=== PATIENT | female | born 1935 | race Caucasian/White ===

== ENCOUNTER 2017-02-22 09:11 | Emergency (ER) | payer OTHER ==
[2017-02-22 09:24] VITALS: BP 141/66; PULSE 79; TEMP 98.6; BMI 28.3
--- NOTE | 2017-02-22 10:24 | PDOC ---
History of Present Illness - General Chief Complaint: Cold Symptoms Stated Complaint: PAIN Time Seen by Provider: 02/22/17 09:45 History Source: Patient Exam Limitations: No Limitations - History of Present Illness Initial Comments: 02/22/17 16:21 Complaint: Dry cough, sore throat 3 weeks with nasal congestion and intermittent headache no headache now History of present illness: Patient is an 81-year-old female with a history of hypertension, hyperlipidemia, CVA, GERD, hypothyroidism here today complaining of a dry cough intermittent with no shortness of breath sore throat, nasal congestion, and intermittent headache. Patient denies any headache presently. Patient denies any shortness of breath. Patient is requesting refill of her pantoprazole 40 mg and her Synthroid 25 mcg. Denies any fever. Denies any chest pain. Timing/Duration: intermittent (for 3 weeks ) Severity: mild Associated Symptoms: reports: cough (dry cough intermittent for 3 weeks), headaches (none today), other (nasal congestion/sore throat) Past History - Past Medical History Allergies/Adverse Reactions: Allergies Allergy/AdvReac Type Severity Reaction Status Date / Time Fish Containing Products Allergy Verified 02/22/17 09:21 No Known Drug Allergies Allergy Verified 02/22/17 09:21 cat scan dye Allergy Uncoded 02/22/17 09:21 Home Medications: Ambulatory Orders Dextromethorphan Polistirex [Delsym] 60 mg PO Q12H PRN #8 naga.er.12h MDD 2 02/22 Levothyroxine [Synthroid -] 25 mcg PO DAILY #30 tablet MDD 1 02/22/17 Loratadine 10 mg PO DAILY #10 tab.rapdis 02/22/17 Pantoprazole Sodium 40 mg PO DAILY #30 tablet. MDD 40 02/22/17 Anemia: No Asthma: No Cancer: No Cardiac Disorders: No CVA: Yes COPD: No CHF: No Diabetes: No HTN: Yes Hypercholesterolemia: Yes Suicide Attempt (Hx): No Thyroid Disease: Yes (HYPO) - Surgical History Abdominal Surgery: Yes Cholecystectomy: Yes - Immunization History Immunization Up to Date: Yes - Psycho/Social/Smoking Cessation Hx Anxiety: No Suicidal Ideation: No Smoking Status: No Smoking History: Never smoked Have you smoked in the past 12 months: No Number of Cigarettes Smoked Daily: 0 Information on smoking cessation initiated: No Hx Alcohol Use: No Drug/Substance Use Hx: No Substance Use Type: None Hx Substance Use Treatment: No Review of Systems - Review of Systems Able to Perform ROS?: Yes Constitutional: No: Symptoms Reported HEENTM: Yes: Nose Congestion, Throat Pain Respiratory: Yes: Cough. No: Orthopnea, Shortness of Breath, SOB with Exertion , SOB at Rest, Stridor, Wheezing, Productive cough Cardiac (ROS): No: Symptoms Reported ABD/GI: No: Symptoms Reported Integumentary: Yes: Symptoms Reported Neurological: Yes: Headache (intermittent now now ). No: Numbness, Pre- Existing Deficit, Seizure, Tingling, Tremors, Weakness, Unsteady Gait, Ataxia, Dizziness *Physical Exam - Vital Signs Last Vital Signs Temp Pulse Resp BP Pulse Ox 98.6 F 79 18 141/66 100 02/22/17 09:21 02/22/17 09:21 02/22/17 09:21 02/22/17 09:21 02/22/17 09:21 - Physical Exam General Appearance: Yes: Appropriately Dressed HEENT: positive: EOMI, TATIANA, Normal ENT Inspection Neck: negative: Lymphadenopathy (R), Lymphadenopathy (L) Respiratory/Chest: positive: Lungs Clear, Normal Breath Sounds. negative: Chest Tender, Respiratory Distress Cardiovascular: positive: Regular Rhythm, Regular Rate, S1, S2 Neurologic: positive: Fully Oriented, Alert, Normal Response, Responsive. negative: Facial Droop, Confused, Disoriented Medical Decision Making - Medical Decision Making 02/22/17 16:24 Patient is an 81-year-old female with a history of hypertension, hyperlipidemia , CVA, GERD, hypothyroidism here today complaining of a dry cough intermittent with no shortness of breath sore throat, nasal congestion, and intermittent headache. Patient denies any headache presently. Patient denies any shortness of breath. Patient is requesting refill of her pantoprazole 40 mg and her Synthroid 25 mcg. Denies any fever. Denies any chest pain. cough nasal congestion PLAN: renewed pantoprazole 40 mg daily synthroid 25 mcg daily claritin 10 mg daily delsym 10 cc q 12 hr prn cough for 5 days follow up with ACTING MANAGER *DC/Admit/Observation/Transfer Diagnosis at time of Disposition: Upper respiratory infection Qualifiers: URI type: unspecified URI Qualified Code(s): J06.9 - Acute upper respiratory infection, unspecified - Discharge Dispostion Disposition: HOME Condition at time of disposition: Stable - Prescriptions Prescriptions: Dextromethorphan Polistirex [Delsym] 60 mg PO Q12H PRN #8 naga.er.12h MDD 2 PRN Reason: Cough Loratadine 10 mg PO DAILY #10 tab.rapdis Pantoprazole Sodium 40 mg PO DAILY #30 tablet. MDD 40 Levothyroxine [Synthroid -] 25 mcg PO DAILY #30 tablet MDD 1 - Patient Instructions Additional Instructions: Drink A lot a fluids and rest You must follow up with your primary care provider within the next few days return to emergeny room if symptoms worsen any difficulty breathing or new symptoms develop Take acetaminophen as needed as directed by homeopathic doctor for pain Patient Voiced understanding of discharge instructions and all questions were answered Beber mucho lquidos y descansar Debe hacer un seguimiento con zee proveedor de atencin primaria dentro de los pr ximos guillremo Regreso a la matt de emergencia si los sntomas empeoran cualquier dificultad para respirar o se desarrollan nuevos sntomas [place] acetaminofeno segn sea necesario segn las instrucciones del fabricante para el dolor Comprensin del paciente sobre las instrucciones de cj y todas las preguntas fueron contestadas
== END 2017-02-22 10:32 | disposition home or self-care (01) ==
LOC: JERFT 09:11
DX: J06.9 Acute upper respiratory infection, unspecified (principal)
CPT/HCPCS: 99281-25

== ENCOUNTER 2017-04-16 09:46 | Emergency (ER) | payer OTHER ==
[2017-04-16 09:51] VITALS: BP 130/67; PULSE 71; TEMP 97.9; BMI 23.8
--- NOTE | 2017-04-16 10:39 | PDOC ---
History of Present Illness - General Chief Complaint: Sore Throat Stated Complaint: THROAT AND EAR PAIN Time Seen by Provider: 04/16/17 10:20 History Source: Patient Exam Limitations: No Limitations - History of Present Illness Initial Comments: 04/16/17 10:33 Patient is a 81-year-old female history of arthritis presents to the emergency department with right ear pain and throat pain. She reports "I have an infection ". Allergies: No known allergies Medications: See medication list Family History: Non-contributory Social History: Denies smoking, alcohol use, or IVDU Review of Systems GENERAL/CONSTITUTIONAL: No fever or chills. No weakness. No weight change. HEAD, EYES, EARS, NOSE AND THROAT: No change in vision. Left ear and throat pain , no dysphagia. CARDIOVASCULAR: No chest pain or shortness of breath. RESPIRATORY: No cough, wheezing, or hemoptysis. GASTROINTESTINAL: No nausea, vomiting, diarrhea or constipation. No rectal bleeding. GENITOURINARY: No dysuria, frequency, or change in urination. MUSCULOSKELETAL: No joint or muscle swelling or pain. No neck or back pain. SKIN : No rash or easy bruising. NEUROLOGIC: No headache, vertigo, loss of consciousness, or loss of sensation. HEMATOLOGIC/LYMPHATIC: No anemia, easy bleeding, or history of blood clots. No lymphadenopathy Physical Exam: GENERAL: The patient is awake, alert, and fully oriented, in no acute distress. EYES: Pupils equal, round and reactive to light, extraocular movements intact, sclera anicteric, conjunctiva clear. ENT: Left TM is erythematous and bulging, nares patent, oropharynx clear without exudates. Moist mucous membranes. No uvula deviation NECK: Normal range of motion, supple without lymphadenopathy, JVD, or masses. LUNGS: Breath sounds equal, clear to auscultation bilaterally. No wheezes, and no crackles. HEART: Regular rate and rhythm, normal S1 and S2 without murmur, rub or gallop. ABDOMEN: Soft, nontender, normoactive bowel sounds. No guarding, no rebound. No masses. No bruising or abrasions MUSCULOSKELETAL: [Normal range of motion, no edema. No clubbing or cyanosis. No cords, erythema, or tenderness. No CVA Tenderness. NEUROLOGICAL: Cranial nerves II through XII grossly intact. Normal speech, normal gait. SKIN: Warm, Dry, normal turgor, no rashes or lesions noted. Past History - Past Medical History Allergies/Adverse Reactions: Allergies Allergy/AdvReac Type Severity Reaction Status Date / Time Fish Containing Products Allergy Verified 04/16/17 09:52 No Known Drug Allergies Allergy Verified 04/16/17 09:52 cat scan dye Allergy Uncoded 04/16/17 09:52 Home Medications: Ambulatory Orders Levothyroxine [Synthroid -] 25 mcg PO DAILY #30 tablet MDD 1 02/22/17 Loratadine 10 mg PO DAILY #10 tab.rapdis 02/22/17 Pantoprazole Sodium 40 mg PO DAILY #30 tablet. MDD 40 02/22/17 Amoxicillin - [Amoxicillin 875mg Tablet -] 875 mg PO BID #20 tablet 04/16/17 Anemia: No Asthma: No Cancer: No Cardiac Disorders: No CVA: Yes COPD: No CHF: No Diabetes: No HTN: Yes Hypercholesterolemia: Yes Suicide Attempt (Hx): No Thyroid Disease: Yes (HYPO) - Surgical History Abdominal Surgery: Yes Cholecystectomy: Yes - Immunization History Immunization Up to Date: Yes - Psycho/Social/Smoking Cessation Hx Anxiety: No Suicidal Ideation: No Smoking Status: No Smoking History: Never smoked Have you smoked in the past 12 months: No Number of Cigarettes Smoked Daily: 0 Hx Alcohol Use: No Drug/Substance Use Hx: No Substance Use Type: None Hx Substance Use Treatment: No *Physical Exam - Vital Signs Last Vital Signs Temp Pulse Resp BP Pulse Ox 97.9 F 71 18 130/67 97 04/16/17 09:48 04/16/17 09:48 04/16/17 09:48 04/16/17 09:48 04/16/17 09:48 Medical Decision Making - Medical Decision Making 04/16/17 12:57 A/P: Patient with acute otitis media with the see patient home on Motrin as needed for pain or Tylenol, amoxicillin strict follow-up with PMD. I discussed the physical exam findings, ancillary test results and final diagnoses with the patient. I answered all of the patient's questions. The patient was satisfied with the care received and felt comfortable with the discharge plan and treatment plan. The patient will call to arrange follow-up and will return to the Emergency Department with any new, persistent or worsening symptoms. , *DC/Admit/Observation/Transfer Diagnosis at time of Disposition: Otitis media Qualifiers: Otitis media type: unspecified Laterality: right Chronicity: acute - Discharge Dispostion Disposition: HOME Condition at time of disposition: Good Admit: No - Prescriptions Prescriptions: Amoxicillin - [Amoxicillin 875mg Tablet -] 875 mg PO BID #20 tablet - Referrals Referrals: Max Mariano MD [Primary Care Provider] - - Patient Instructions Printed Discharge Instructions: Middle Ear Infection Additional Instructions: Tylenol for pain, follow-up with PMD in 2 days if symptoms persist any increased pain, hearing loss, numbness or tingling, dizziness, nausea vomiting, or any other concerns return to ER
== END 2017-04-16 10:44 | disposition home or self-care (01) ==
LOC: JERFT 09:46
DX: H66.91 Otitis media, unspecified, right ear (principal); Z86.73 Personal history of transient ischemic attack (TIA), and cerebral infarction without residual deficits; I10 Essential (primary) hypertension; E78.00 Pure hypercholesterolemia, unspecified
CPT/HCPCS: 99281-25

== ENCOUNTER 2017-08-16 07:38 | Emergency (ER) | payer OTHER ==
[2017-08-16 07:46] VITALS: TEMP 98.3; BMI 28.1
--- NOTE | 2017-08-16 07:50 | PDOC ---
History of Present Illness - General Chief Complaint: Pain, Acute Stated Complaint: PAIN Time Seen by Provider: 08/16/17 07:49 - History of Present Illness Initial Comments: Patient is an 81-year-old female with a history of hypertension, hyperlipidemia , CVA, GERD, hypothyroidism here today complaining of headache, joint pains, throat discomfort, and pain in her legs from varicose veins. She actually stated to me that she had no medical problems but used to be on some medications that she doesn't remember the name of. She describes the headache as a posterior occipital tightness that is 5/10 in severity without co- presenting visual symptoms or focal neurological deficits. Her throat discomfort is an irritation and dryness that is better with water. Of note, she has had note of severe anxiety over the past few years since the of her (approximately 2 years prior). Denies fevers, chills, nausea., vomiting, . chest pain. cough, or diarrhea. Her PCP is Dr. Max Mariano and hasn't seem him for a while 08/16/17 08:36 Past History - Past Medical History Allergies/Adverse Reactions: Allergies Allergy/AdvReac Type Severity Reaction Status Date / Time Fish Containing Products Allergy Verified 08/16/17 07:41 No Known Drug Allergies Allergy Verified 08/16/17 07:41 cat scan dye Allergy Uncoded 08/16/17 07:41 Home Medications: Ambulatory Orders Unobtainable [Unobtainable] 08/16/17 Anemia: No Asthma: No Cancer: No Cardiac Disorders: No CVA: Yes COPD: No CHF: No Diabetes: No HTN: Yes Hypercholesterolemia: Yes Thyroid Disease: Yes (HYPO) - Surgical History Abdominal Surgery: Yes Cholecystectomy: Yes - Immunization History Immunization Up to Date: Yes - Suicide/Smoking/Psychosocial Hx Smoking Status: No Smoking History: Never smoked Have you smoked in the past 12 months: No Number of Cigarettes Smoked Daily: 0 Hx Alcohol Use: No Drug/Substance Use Hx: No Substance Use Type: None Hx Substance Use Treatment: No Review of Systems - Review of Systems Constitutional: No: Chills, Fever, Weakness HEENTM: No: Blurred Vision, Recent change in vision, Double Vision Respiratory: No: Cough, Shortness of Breath Cardiac (ROS): No: Chest Pain, Edema, Lightheadedness Musculoskeletal: Yes: Joint Pain, Muscle Pain Neurological: Yes: Headache. No: Numbness, Paresthesia *Physical Exam - Vital Signs Last Vital Signs Temp Pulse Resp BP Pulse Ox 98.3 F 78 15 142/82 98 08/16/17 07:42 08/16/17 07:42 08/16/17 07:42 08/16/17 07:42 08/16/17 07:42 - Physical Exam General Appearance: Yes: Nourished, Appropriately Dressed. No: Apparent Distress HEENT: positive: EOMI, TATIANA, Normal ENT Inspection, Normal Voice Neck: positive: Trachea midline, Normal Thyroid, Supple. negative: Tender, Rigid Respiratory/Chest: positive: Lungs Clear, Normal Breath Sounds. negative: Chest Tender, Respiratory Distress, Accessory Muscle Use Cardiovascular: positive: Regular Rhythm, Regular Rate, S1, S2. negative: Edema , JVD, Murmur Gastrointestinal/Abdominal: positive: Normal Bowel Sounds, Flat, Soft. negative : Tender Musculoskeletal: negative: Normal Inspection (Vericose veins above the knee without any significant edema or bony deformity. Slight pain with flexion and extensin of her knees bilaterally. ) Extremity: positive: Normal Range of Motion. negative: Normal Inspection ( Veracose veins bilaterally in LEs with some chronic, stable lymphadema.), Tender Neurologic: positive: plastic surgery manager II-XII NML intact, Alert, Normal Mood/Affect, Motor Strength 5/5. negative: Fully Oriented (Oriented to person, place, and month/ day buthad no clue what year it was "1999s I believe") Medical Decision Making - Medical Decision Making 82 F with recent lapse in PCP coverage due to some confusion presenting with headache and multiple body aches without chest pain or focal neurological deficit. This headache is admittedly similar to her previous headaches but has not remitted with aspirin use. We will get a head CT and give her 1G Tylenol PO and have set up an appointment with Dr. Max Mariano for at 15:00. Will DC patient home once CT returns (granted it is negative) and pain is controlled. 08/16/17 09:57 Patient feeling better after Tylenol and head CT only showing chronic microvascular changes but no acute changes. 08/16/17 10:31 *DC/Admit/Observation/Transfer Diagnosis at time of Disposition: Headache - Discharge Dispostion Disposition: HOME Condition at time of disposition: Improved Admit: No - Referrals Referrals: Max Mariano MD [Staff Physician] - - Patient Instructions Printed Discharge Instructions: DI for Osteoarthritis Additional Instructions: Te aguilar visto por artritis y dolor de hector. La tomografa computarizada de zee hector no mostr sangrado o felix nuevo. Debe seguir con el Dr. Max Mariano el jueves a las 3:00 PM para naga khanh.
--- NOTE | 2017-08-16 07:59 | PDOC ---
Attending Attestation - Medical Decision Making 08/16/17 09:39 The patient's primary is Dr. Max Mariano. Called his office at to make a follow- up appointment for this patient. She is now scheduled for an appointment with Dr. Mariano on August 19 at 3:00pm. The office is located at [address] [place] [address]. <Kierra Hendrix - Last Filed: 08/16/17 10:39> - Resident Resident Name: Alison Do - HPI HPI: 08/19/17 21:41 Pt presents to the ED with multiple nonspecific complaints, the most prominent complaint is mild, gradual onset, persistent headache. THis complaint seems to have been present and unchanged for several months. - Physicial Exam PE: 08/19/17 21:42 Agree with resident exam. Patient is neurologically intact and well appearing in the ED. - Medical Decision Making 08/19/17 21:42 Pt presents to the ED complaining of mild intermittent headache and multiple non specific complaints. CT head checked to rule out intracranial pathology and is negative. Will discharge home. <Leonarda Garcia - Last Filed: 08/19/17 21:45> Follow-Up - Follow-Up Follow-Up: As Needed (Please follow up with Dr. Max Mariano in his office on August 19 at 3:00pm.) <Kierra Hendrix - Last Filed: 08/16/17 10:39>
[2017-08-16] MEDS ORDERED: ACETAMINOPHEN 500 MG TABLET (FP) PO ONE (09:10)
[2017-08-16] MEDS ORDERED: ACETAMINOPHEN 325 MG TABLET (FP) ONE (09:16)
[2017-08-16 11:00] VITALS: BP 139/74; PULSE 53
== END 2017-08-16 11:00 | disposition home or self-care (01) ==
LOC: JER 07:38
DX: R51 Headache (principal); M25.50 Pain in unspecified joint; M79.605 Pain in left leg; M79.604 Pain in right leg; I10 Essential (primary) hypertension; E78.00 Pure hypercholesterolemia, unspecified; K21.9 Gastro-esophageal reflux disease without esophagitis; Z86.73 Personal history of transient ischemic attack (TIA), and cerebral infarction without residual deficits
CPT/HCPCS: 70450-TC; 99283-25

== ENCOUNTER 2019-10-31 14:34 | Inpatient (IN) | payer OTHER ==
[2019-10-31] MEDS ORDERED: ALBUTEROL SO4 2.5/IPRATROPIUM 0.5 INH SOL 3 ML VIAL.NEB. NEB ONE (15:15)
--- NOTE | 2019-10-31 15:31 | PDOC ---
History of Present Illness <Rafia Flores - Last Filed: 10/31/19 17:56> - General History Source: Patient, Service Trainer Used ([employer] Telephone Service Trainer) Exam Limitations: Language Barrier - History of Present Illness Initial Comments: HPI: 84 y/o female presenting to [facility] ER with unclear complaints. The pt is Pry[place] speaking only, but even utilizing the telephone translation service, the pts symptoms are difficult to elicit. The pts responses are tangential and contradictory. She initially complained of pain in the pit of [her] stomach with burning sensation in her throat. Then she reported sometimes feeling short of breath with chest pain, but these symptoms were not present at the time of interview. Denies nausea, vomiting, or diarrhea. Tolerating PO well. Last BM was yesterday and reportedly normal. PCP: Dr. Max Mariano GI: Dr. Lou Medical Hx: - HTN - HLD - CVA - GERD - Hypothyroidism - Extensive colonic diverticulosis - S/p cholecystectomy Review of Systems: In addition to that documented in the HPI above, the additional ROS was obtained : Constitutional- Denies fevers or chills Head- Denies vision changes ENMT- Denies sore throat CV- Denies chest pain Resp- Denies SOB GI- Denies vomiting or diarrhea - Endorses increased urinary frequency but believes this is because she is drinking "a lot" of water. Denies painful urination or hematuria. MSK- Denies recent trauma Skin- Denies new rashes Neuro- Denies new numbness or tingling or weakness Endocrine- Denies polyuria Heme- Denies bleeding or bruising Physical Examination: Vital signs and nursing notes reviewed. Constitutional- Adult female in no acute distress or obvious discomfort. Obese body habitus. Found sitting upright on edge of hospital bed. Head- Normocephalic. No obvious external signs of trauma. Cardiovascular / Chest- Regular rate and regular rhythm. No murmur, rubs, clicks , or gallops. Peripheral pulses- radial pulses full. 3+ pitting pretibial edema to bilateral lower extremities to the knee. Respiratory- Breathing shallow and mildly tachypneic. Pt became more tachypneic and started to cough when she was placed in the semi-aquino position. Equal chest rise and fall. Trace diffuse end-expiratory wheeze. Decreased breath sounds in the bases. No rhonchi or focal consolidation. Gastrointestinal- abdomen is soft, non-tender, non-distended. Neuro- Alert and oriented x4. Moving all four extremities spontaneously. Skin- Warm, dry, and intact. - No R or L CVA tenderness. Psych- Affect- appropriate. Mood- normal. Speech was non-labored, non- pressured. MDM: 84 y/o female presenting with unclear complaints. Afebrile. Vitals remarkable for hypoxia to 88 on room air, which improved with 1L oxygen therapy via nasal cannula. No hypotension, bradycardia, or tachycardia. Physical exam as described above. CXR revealed mediastinal congestion and questionable infiltrates in lower lobes. POCUS revealed trace B lines in R and L lower lobes. Possible effusion in R lower lobe. Decreased LV contractility. Anterior mitral leaflet does not strike septum. p-BNP elevated. Suspect likely new onset CHF. Ordered Lasix IV. Also replenished magnesium. EKG revealed sinus tachycardia. Unclear origin of the tachycardia as pt was not tachycardia on continuous telemetry monitoring. Possible exertional tachycardia from changing position for the formal 12-lead. Initial troponin not elevated. Will trend at 3 hrs given unclear onset of symptoms. Will admit the pt to telemetry for new onset CHF. 31 Oct 2019 19:24 PM Telephone discussion with Dr. Souza. Verbally appraised of the pts HPI, ED course, and current plan of management. Will admit the pt to telemetry. No additional orders requested. Repeat Troponin and EKG pending. Cecil Cross M.D., PGY2 Emergency Medicine Resident <Cecil Cross - Last Filed: 10/31/19 19:25> - General Chief Complaint: Pain Stated Complaint: ABD PAIN Time Seen by Provider: 10/31/19 14:47 Past History <Rafia Flores - Last Filed: 10/31/19 17:56> - Past Medical History Anemia: No Asthma: No Cancer: No Cardiac Disorders: No CVA: Yes COPD: No CHF: No Diabetes: No HTN: Yes Hypercholesterolemia: Yes Thyroid Disease: Yes (HYPO) - Surgical History Abdominal Surgery: Yes Cholecystectomy: Yes - Immunization History Immunization Up to Date: Yes - Psycho Social/Smoking Cessation Hx Smoking Status: No Smoking History: Never smoked Have you smoked in the past 12 months: No Number of Cigarettes Smoked Daily: 0 Hx Alcohol Use: No Drug/Substance Use Hx: No Substance Use Type: None Hx Substance Use Treatment: No <Cecil Cross - Last Filed: 10/31/19 19:25> - Past Medical History Allergies/Adverse Reactions: Allergies Allergy/AdvReac Type Severity Reaction Status Date / Time Fish Containing Products Allergy Verified 10/31/19 14:39 No Known Drug Allergies Allergy Verified 10/31/19 14:39 cat scan dye Allergy Uncoded 10/31/19 14:39 Home Medications: Ambulatory Orders Unobtainable 08/16/17 *Physical Exam - Vital Signs Last Vital Signs Temp Pulse Resp BP Pulse Ox 98 F 97 H 22 H 141/81 98 10/31/19 14:35 10/31/19 16:57 10/31/19 16:57 10/31/19 16:57 10/31/19 17:44 <Rafia Flores - Last Filed: 10/31/19 17:56> - Vital Signs Last Vital Signs Temp Pulse Resp BP Pulse Ox 98 F 90 18 140/74 100 10/31/19 14:35 10/31/19 14:35 10/31/19 14:35 10/31/19 14:35 10/31/19 14:35 <Cecil Cross - Last Filed: 10/31/19 19:25> Vital Signs - Vital Signs #1 Time: 15:30 Blood Pressure: 141/81 BP Location: Left Arm Blood Pressure Position: Sitting Pulse Rate: 97 Respiratory Rate: 22 O2 Sat by Pulse Oximetry (%): 98 Oxygen Delivery Method: Nasal Cannula Oxygen Flow Rate: 2 #2 Time: 16:56 Blood Pressure: 149/74 BP Location: Left Leg Blood Pressure Position: Sitting Pulse Rate: 97 Respiratory Rate: 28 O2 Sat by Pulse Oximetry (%): 96 Oxygen Delivery Method: Nasal Cannula Oxygen Flow Rate: 1 <Cecil Cross - Last Filed: 10/31/19 19:25> ED Treatment Course - LABORATORY CBC & Chemistry Diagram: 10/31/19 16:00 10/31/19 16:00 - ADDITIONAL ORDERS Additional order review: Laboratory Results 10/31/19 10/31/19 10/31/19 17:12 16:00 16:00 PT with INR INR PTT (Actin FS) VBG pH 7.36 POC VBG pCO2 51.6 POC VBG pO2 79.2 H VBG HCO3 28.2 VBG O2 Sat (Khalif) 95.0 H VBG Base Excess 2.4 H Sodium Potassium Chloride Carbon Dioxide Anion Gap BUN Creatinine Est GFR (CKD-EPI)AfAm Est GFR (CKD-EPI)NonAf Random Glucose Calcium Phosphorus 3.8 Magnesium 1.6 L Total Bilirubin AST ALT Alkaline Phosphatase Troponin I B-Natriuretic Peptide Total Protein Albumin TSH Thyroxine (T4) Urine Color Dk yellow Urine Appearance Cloudy Urine pH 5.5 Ur Specific [place] 1.032 Urine Protein 2+ H Urine Glucose (UA) Negative Urine Ketones Trace H Urine Blood 2+ H Urine Nitrite Negative Urine Bilirubin 2+ H Urine Urobilinogen 1.0 Ur Leukocyte Esterase Negative Urine WBC (Auto) 9 Urine RBC (Auto) 6 Urine Casts (Auto) 90 U Epithel Cells (Auto) 7.7 Urine Bacteria (Auto) 17.7 10/31/19 10/31/19 16:00 16:00 PT with INR 14.10 H INR 1.19 H PTT (Actin FS) 26.2 VBG pH POC VBG pCO2 POC VBG pO2 VBG HCO3 VBG O2 Sat (Khalif) VBG Base Excess Sodium 141 Potassium 3.6 Chloride 104 Carbon Dioxide 34 H Anion Gap 3 L BUN 9.4 Creatinine 0.8 Est GFR (CKD-EPI)AfAm 78.47 Est GFR (CKD-EPI)NonAf 67.70 Random Glucose 128 H Calcium 9.0 Phosphorus Magnesium Total Bilirubin 0.8 AST 31 ALT 28 Alkaline Phosphatase 75 Troponin I 0.03 B-Natriuretic Peptide 5286.2 H Total Protein 6.4 Albumin 3.3 L TSH 4.79 H Thyroxine (T4) 7.9 Urine Color Urine Appearance Urine pH Ur Specific [place] Urine Protein Urine Glucose (UA) Urine Ketones Urine Blood Urine Nitrite Urine Bilirubin Urine Urobilinogen Ur Leukocyte Esterase Urine WBC (Auto) Urine RBC (Auto) Urine Casts (Auto) U Epithel Cells (Auto) Urine Bacteria (Auto) 10/31/19 16:00 RBC 3.94 MCV 94.6 MCHC 32.8 RDW 14.1 MPV 12.0 H D Neutrophils % 78.0 D Lymphocytes % 7.0 L D Monocytes % 12.6 H Eosinophils % 1.7 Basophils % 0.7 - Medications Given in the ED: ED Medications Discontinued Medications Generic Name Dose Route Start Last Admin Trade Name Freq PRN Reason Stop Dose Admin Albuterol/Ipratropium 1 amp 10/31/19 15:15 10/31/19 15:55 Duoneb - NEB 10/31/19 15:16 Not Given ONCE ONE <Rafia Flores - Last Filed: 10/31/19 17:56> - LABORATORY CBC & Chemistry Diagram: 10/31/19 16:00 10/31/19 16:00 - RADIOLOGY Radiology Studies Ordered: Category Date Time Status CXRPORT [CHEST X-RAY PORTABLE*] [RAD] Stat Radiology 10/31/19 15:12 Ordered <Cecil Cross - Last Filed: 10/31/19 19:25> Discharge - Discharge Information Problems reviewed: Yes - Admission Yes <Rafia Flores - Last Filed: 10/31/19 17:56> - Discharge Information Problems reviewed: Yes - Admission Yes <Cecil Cross - Last Filed: 10/31/19 19:25> - Discharge Information Clinical Impression/Diagnosis: CHF exacerbation, Pleural effusion, Elevated brain natriuretic peptide (BNP) level Condition: Guarded
--- NOTE | 2019-10-31 16:36 | PDOC ---
Attending Attestation - Resident Resident Name: Cecil Cross - ED Attending Attestation I have performed the following: I have examined & evaluated the patient, The case was reviewed & discussed with the resident, I agree w/resident's findings & plan - HPI HPI: 10/31/19 16:31\ 84 YOF with h/o HTN, HLD, CVA, GERD, hypothyroidism, diverticolosis, s/p cholecystectomy presenting with SOB, unable to lie flat, chest pain and abdominal pain/bloating. The pt is Occitan speaking only, used language interpreter line with telephone translation with multiple complaints. 10/31/19 19:33 - Physicial Exam PE: 10/31/19 16:32 mild respiratory distress, orthopneic, sitting upright, EOMI, PERRL, nl conjunctiva, anicteric; neck supple. mildly tachypneic, on supp O2, lungs with b /l lower base crackles, left > right, diminished on right lower lung field. RRR , abdomen soft obese. no rebound, guarding. Back nontender. NG x4, no focal neuro deficits. b/l 2+ pitting peripheral edema. normal color for ethnicity, WWP. no calf tenderness. - Medical Decision Making 10/31/19 16:34 Vital Signs Temp Pulse Resp BP Pulse Ox 98 F 97 H 22 H 141/81 98 10/31/19 14:35 10/31/19 15:47 10/31/19 15:47 10/31/19 15:47 10/31/19 15:47 DDx SOB: ACS, arrhythmia, PE, PTX, CHF, COPD exac, pulmonary edema, pleurisy, pneumonia, viral syndrome. effusion. anemia, electrolyte/metabolic derangements. viral syndrome. EKG sinus tachycardia at 134 bpm, no interval abnormalities, narrow QRS, ST and T wave segments and morphology normal. Nonspecific T wave abnormalities, likely while lying down and getting orthopneic Vital signs noted, afebrile, normal heart rate, mildly tachypneic and SPO2 borderline at 90% on room air so placed on supplemental oxygen 1 to 2 L via nasal cannula has been appropriate. With appropriate response. Hemodynamically appropriate. Work-up for new onset congestive heart failure, bedside ultrasound with decreased ejection fraction less than 30% on visual estimation, right-sided pleural effusion, scant B-lines bilaterally, correlating with chest x-ray findings of bilateral pulmonary vascular congestion, blunting on right side horacio with pleural effusion. Will diurese Lasix 40 mg IV, Influenza negative, BNP is elevated greater than 5000, troponin is negative so unlikely to be ACS. Magnesium is low at 1.6, repleted 2 g IV. Remainder of electrolytes and creatinine are fine. VBG within normal limits without significant CO2 retention, no evidence of acidosis or alkalosis. CBC and coags are also normal. admit to telemetry for new onset CHF, fluid overload/pleural effusion, inpatient cardiology evaluation and further medical management admitting to Dr Souza service. 10/31/19 17:53 10/31/19 17:55 10/31/19 19:34 Heart Score/ECG Review #1 ECG reviewed & interpreted by me at: 16:45 General ECG Interpretation: Normal Intervals 10/31/19 17:35 EKG sinus tachycardia at 134 bpm, no interval abnormalities, narrow QRS, ST and T wave segments and morphology normal. Nonspecific T wave abnormalities, likely while lying down and getting orthopneic - does not appear as SVT, as there are P waves present
[2019-10-31 16:47] LABS: VENOUS PC02 51.6 mmHg (38-52); VENOUS PH 7.36 (7.31-7.41); VENOUS PO2 79.2 mmHg (28-48)
[2019-10-31 16:50] LABS: BASO % 0.7 % (0-2.0); EOS % 1.7 % (0-4.5); HEMATOCRIT 37.3 % (32.4-45.2); HEMOGLOBIN 12.2 GM/dL (10.7-15.3); MCHC 32.8 g/dl (32.0-36.0); MEAN CELL VOLUME 94.6 fl (80-96); MONO % 12.6 % (3.8-10.2); PLATELET COUNT 127 K/MM3 (134-434); RBC 3.94 M/mm3 (3.60-5.2); RDW 14.1 % (11.6-15.6); WHITE BLOOD COUNT 5.9 K/mm3 (4.0-10.0)
[2019-10-31 17:18] LABS: INR 1.19 (0.83-1.09); PROTHROMBIN TIME (PATIENT) 14.1 SEC (9.7-13.0)
[2019-10-31 17:21] LABS: ACTIVATED PTT 26.2 SECONDS (25.2-36.5)
[2019-10-31 17:23] LABS: MAGNESIUM 1.6 mg/dL (1.8-2.4); PHOSPHOROUS 3.8 mg/dL (2.5-4.9)
[2019-10-31 17:27] LABS: EPI CELLS 7.7 /HPF (0-5/HPF); HYALINE CASTS 90 /lpf (0-8); PH,URINE 5.5 (5.0-8.0); URINE APPEARANCE CLOUDY; URINE BACTERIA 17.7 /hpf (NEGATIVE); URINE BILIRUBIN 2+ (NEGATIVE); URINE COLOR DK YELLOW; URINE GLUCOSE (UA) NEGATIVE (NEGATIVE); URINE KETONE TRACE (NEGATIVE); URINE LEUK ESTERASE NEGATIVE (NEGATIVE); URINE NITRITE NEGATIVE (NEGATIVE); URINE PROTEIN 2+ (NEGATIVE); URINE RBC 6 /hpf (0-4); URINE WBC 9 /hpf (0-5)
[2019-10-31] MEDS ORDERED: MAGNESIUM SULF 50% (8.12 MEQ/2 ML-1 GM VIAL) IVPB ONE (17:34)
[2019-10-31 17:35] LABS: ALBUMIN 3.3 g/dl (3.4-5.0); BILIRUBIN,TOTAL 0.8 mg/dL (0.2-1); BLOOD UREA NITROGEN 9.4 mg/dL (7-18); CREATININE 0.8 mg/dL (0.55-1.3); N-TERMINAL BNP 5286.2 pg/ml (5-450); POTASSIUM 3.6 mmol/L (3.5-5.1); TOT PROT 6.4 g/dl (6.4-8.2)
[2019-10-31] MEDS ORDERED: FUROSEMIDE 40 MG/4 ML INJECTABLE VIAL IVPUSH ONE (17:56)
[2019-10-31] MEDS ORDERED: MAGNESIUM SULFATE IN WATER 2 GM/50 ML IVPB IVPB ONE (18:11)
[2019-10-31] MEDS ORDERED: FUROSEMIDE 40 MG/4 ML INJECTABLE VIAL ONE (18:11)
[2019-11-01 10:41] LABS: BASO % 0.6 % (0-2.0); EOS % 2.6 % (0-4.5); HEMATOCRIT 35.9 % (32.4-45.2); HEMOGLOBIN 11.8 GM/dL (10.7-15.3); LYMPH % 14.2 % (8-40); MCH 30.8 pg (25.7-33.7); MCHC 32.8 g/dl (32.0-36.0); MEAN CELL VOLUME 93.8 fl (80-96); MEAN PLT VOLUME 11.1 fl (7.5-11.1); MONO % 17.2 % (3.8-10.2); NEUT % 65.4 % (42.8-82.8); PLATELET COUNT 106 K/MM3 (134-434); RBC 3.83 M/mm3 (3.60-5.2); RDW 14.1 % (11.6-15.6); WHITE BLOOD COUNT 6.6 K/mm3 (4.0-10.0)
[2019-11-01 11:15] LABS: BILIRUBIN,TOTAL 0.8 mg/dL (0.2-1); CALCIUM 8.4 mg/dL (8.5-10.1); CREATININE 0.7 mg/dL (0.55-1.3); POTASSIUM 3.6 mmol/L (3.5-5.1)
--- NOTE | 2019-11-01 11:51 | HP ---
Admitting History and Physical - Admission History of Present Illness: Pt is a 84 y/o female with PMH significant for systolic CHF (moderate systolic LV dysfunction on 10/2019 ECHO), HTN, HLD, CVA, GERD, hypothyroidism, diverticolosis, obesity who now presents to the ER w/ SOB (unable to lie flat) x 72 hours. Pt also complains of a nonspecific abdominal pain. In the ER CXR showed congestive changes/atelectasis and BNP wzs > 5000. - Past Medical History BOOK JOGGER: Yes: CVA, Other (generalized weakness) Cardiovascular: Yes: Aneurysm, CAD, HTN, Hyperlipdemia Gastrointestinal: Yes: Constipation, Diverticulosis, Hemorrhoids Endocrine: Yes: Hypothyroidism - Past Surgical History Past Surgical History: Yes: Cholecystectomy - Smoking History Smoking history: Never smoked Have you smoked in the past 12 months: No Aproximately how many cigarettes per day: 0 - Alcohol/Substance Use Hx Alcohol Use: No - Social History ADL: Independent History of Recent Travel: No Home Medications - Allergies Allergies/Adverse Reactions: Allergies Allergy/AdvReac Type Severity Reaction Status Date / Time Fish Containing Products Allergy Verified 10/31/19 14:39 No Known Drug Allergies Allergy Verified 10/31/19 14:39 cat scan dye Allergy Uncoded 10/31/19 14:39 - Home Medications Home Medications: Ambulatory Orders Calcium Carbonate/Vitamin D3 [Calcium 500 + Vit D Caplet] 1 each PO DAILY Meloxicam 7.5 mg PO DAILY 11/01/19 Aspirin Coated [Ecotrin -] 81 mg PO DAILY #30 tablet.ec 11/13/19 Docusate Sodium [Colace -] 100 mg PO BID #60 capsule 11/13/19 Furosemide [Lasix -] 40 mg PO DAILY #30 tablet 11/13/19 Metoprolol Succinate [Toprol XL -] 50 mg PO DAILY #30 tab.sr.24h 11/13/19 Sacubitril/Valsartan [Entresto 24 mg-26 mg Tablet] 1 tab PO BID #60 tablet 11/13 Spironolactone [Aldactone -] 25 mg PO DAILY #30 tablet 11/13/19 Family Medical History Family History: Unremarkable Review of Systems - Review of Systems Constitutional: reports: No Symptoms Eyes: reports: No Symptoms HENT: reports: No Symptoms Neck: reports: No Symptoms Cardiovascular: reports: Shortness of Breath Respiratory: reports: SOB Gastrointestinal: reports: Abdominal Pain Genitourinary: reports: No Symptoms Physical Examination Vital Signs: Vital Signs Temperature 99.1 F 11/01/19 06:14 Pulse Rate 90 11/01/19 07:15 Respiratory Rate 18 11/01/19 07:15 Blood Pressure 124/64 11/01/19 07:15 O2 Sat by Pulse Oximetry (%) 93 L 11/01/19 07:15 Eyes: Yes: WNL HENT: Yes: WNL Neck: Yes: WNL, Supple Cardiovascular: Yes: WNL, Regular Rate and Rhythm Respiratory: Yes: Rales Gastrointestinal: Yes: WNL, Normal Bowel Sounds, Soft Edema: Yes Edema: LLE: 1+, RLE: 1+ Neurological: Yes: WNL, Alert, Oriented ...Motor Strength: WNL Labs: CBC, BMP 11/01/19 10:30 11/01/19 10:30 Problem List - Problems (1) Acute on chronic systolic (congestive) heart failure Assessment/Plan: Cont IV lasix Cardio consult Monitor electror electrolytes Check echo Code(s): I50.23 - ACUTE ON CHRONIC SYSTOLIC (CONGESTIVE) HEART FAILURE (2) Atelectasis Assessment/Plan: Cont O2 therapy Incentive spirometry Code(s): J98.11 - ATELECTASIS (3) CAD (coronary artery disease) Code(s): I25.10 - ATHSCL HEART DISEASE OF [place] CORONARY ARTERY W/O ANG PCTRS (4) HLD (hyperlipidemia) Code(s): E78.5 - HYPERLIPIDEMIA, UNSPECIFIED (5) HTN (hypertension) Assessment/Plan: Cont metoprolol/lisinopril Code(s): I10 - ESSENTIAL (PRIMARY) HYPERTENSION (6) Hypothyroid Code(s): E03.9 - HYPOTHYROIDISM, UNSPECIFIED
[2019-11-01] MEDS ORDERED: FUROSEMIDE 40 MG/4 ML INJECTABLE VIAL ONE (11:57)
[2019-11-01] MEDS: FUROSEMIDE 40 MG/4 ML INJECTABLE VIAL IVPUSH SCH (12:02)
--- NOTE | 2019-11-01 12:36 | EKG ---
Test Reason : Blood Pressure : / mmHG Vent. Rate : 134 BPM Atrial Rate : 131 BPM P-R Int : 000 ms QRS Dur : 114 ms QT Int : 326 ms P-R-T Axes : 000 -42 086 degrees QTc Int : 486 ms SUPRAVENTRICULAR TACHYCARDIA LEFT AXIS DEVIATION NONSPECIFIC ST AND T WAVE ABNORMALITY ABNORMAL ECG WHEN COMPARED WITH ECG OF 01-JUL-2016 17:41, [place] INTERVAL HAS DECREASED VENT. RATE HAS INCREASED BY [address] ELEVATION NOW PRESENT IN ANTERIOR LEADS T WAVE INVERSION NO LONGER EVIDENT IN INFERIOR LEADS T WAVE INVERSION NO LONGER EVIDENT IN ANTERIOR LEADS Confirmed by BOGDAN DOW MD ([id number]) on 11/01/2019 12:35:53 PM Referred By: Confirmed By:BOGDAN DOW MD
--- NOTE | 2019-11-01 12:36 | EKG ---
Test Reason : Blood Pressure : / mmHG Vent. Rate : 098 BPM Atrial Rate : 098 BPM P-R Int : 226 ms QRS Dur : 114 ms QT Int : 352 ms P-R-T Axes : 039 -39 110 degrees QTc Int : 449 ms SINUS RHYTHM WITH 1ST DEGREE A-V BLOCK LEFT AXIS DEVIATION MINIMAL VOLTAGE CRITERIA FOR LVH, MAY BE NORMAL VARIANT T WAVE ABNORMALITY, CONSIDER LATERAL ISCHEMIA ABNORMAL ECG WHEN COMPARED WITH ECG OF 31-OCT-2019 16:43, [place] INTERVAL HAS INCREASED ST NO LONGER ELEVATED IN ANTERIOR LEADS Confirmed by VICTOR M HOUSTON, BOGDAN ([id number]) on 11/01/2019 12:36:02 PM Referred By: Confirmed By:BOGDAN DOW MD
--- NOTE | 2019-11-01 13:44 | ECHO ---
Name: BERNARD GIBSON Exam:Adult Echocardiogram Study Date: 11/01/2019 01:08 PM Age: 84 yrs Reason For Study: CHF Height: 68 in Weight: 220 lb BSA: 2.1 m2 MMode/2D Measurements & Calculations IVSd: 1.1 cm Ao root diam: 3.4 cm LVIDd: 5.3 cm LA dimension: 3.1 cm LVIDs: 4.1 cm LVPWd: 1.0 cm EDV(Teich): 133.1 ml LVOT diam: 2.0 cm ESV(Teich): 75.8 ml LAV (MOD-bp): 125.0 ml Doppler Measurements & Calculations MV E max lowell: 107.0 cm/sec Ao V2 max: 177.1 cm/sec MV A max lowell: 66.9 cm/sec Ao max P.5 mmHg MV E/A: 1.6 AI P1/2t: 262.9 msec MV dec time: 0.14 sec DEISY(V,D): 1.7 cm2 AI max lowell: 406.0 cm/sec LV V1 max P.6 mmHg AI max P.1 mmHg LV V1 max: 95.1 cm/sec AI dec slope: 452.3 cm/sec2 MR max lowell: 405.6 cm/sec TR max lowell: 273.9 cm/sec MR max P.4 mmHg TR max P.2 mmHg PA V2 max: 118.1 cm/sec Med Peak E' [place]: 3.6 cm/sec PA max P.6 mmHg Med E/e': 29.8 Lat Peak E' [place]: 7.5 cm/sec Lat E/e': 14.3 PI Vmax: 92.3 cm/sec Procedure A two-dimensional transthoracic echocardiogram with color flow and Doppler was performed. The study w as technically difficult with many images being suboptimal in quality. Left Ventricle The left ventricle is grossly normal size. Left ventricular systolic function is moderately reduced. Left Ventricular Filling pattern is normal for age. Regional wall motion abnormalities cannot be excluded due to limited visualization. There is moderate global hypokinesis of the left ventricle. Right Ventricle The right ventricle is not well visualized. The right ventricle is grossly normal size. Atria Normal left and right atrial size and function. Mitral Valve There is mild mitral valve thickening. There is no mitral valve stenosis. There is mild to moderate m itral regurgitation. Tricuspid Valve There is mild tricuspid valve thickening. There is no tricuspid stenosis. There is mild to moderate t ricuspid regurgitation. Right ventricular systolic pressure is elevated at 40-50mmHg. Aortic Valve The aortic valve is not well visualized. No hemodynamically significant valvular aortic stenosis. Mil d to moderate aortic regurgitation. Pulmonic Valve The pulmonic valve is not well visualized. There is no pulmonic valvular stenosis. Trace pulmonic miya vular regurgitation. Great Vessels The aortic root is normal size. Pericardium/Pleura There is no pericardial effusion. Interpretation Summary The left ventricle is grossly normal size. There is mild to moderate tricuspid regurgitation. Right ventricular systolic pressure is elevated at 40-50mmHg. Mild to moderate aortic regurgitation. Left Ventricular Filling pattern is normal for age. There is mild to moderate mitral regurgitation. Left ventricular systolic function is moderately reduced. Regional wall motion abnormalities cannot be excluded due to limited visualization. There is moderate global hypokinesis of the left ventricle. The study was technically difficult with many images being suboptimal in quality. MD Edvin Raza 11/01/2019 01:43 PM
--- NOTE | 2019-11-01 13:58 | CON.CARD ---
Consult Consult Specialty:: cardiology Reason for Consultation:: shortness of breath - History of Present Illness Chief Complaint: Pt alert; denies chest pain; dyspneic on mild exertion; cough with phlegm History of Present Illness: 84 YOF with h/o systolic CHF (moderate systolic LV dysfunction on 10/2019 ECHO) , HTN, HLD, CVA, GERD, hypothyroidism, diverticolosis, obesity, s/p cholecystectomy, now admitted with SOB (unable to lie flat) x 72 hours; denies chest pain. - History Source History Provided By: Patient, Medical Record Limitations to Obtaining History: Poor Historian - Past Medical History [employer]: Yes: CVA, Other (generalized weakness) Cardio/Vascular: Yes: Aneurysm, CAD, HTN, Hyperlipdemia Gastrointestinal: Yes: Constipation, Diverticulosis, Hemorrhoids Renal/: No: Renal Failure Reproductive: Yes: Postmenopausal ...: No Heme/Onc: No: Anemia Endocrine: Yes: Hypothyroidism - Past Surgical History Past Surgical History: Yes: Cholecystectomy - Alcohol/Substance Use Hx Alcohol Use: No - Smoking History Smoking history: Never smoked Have you smoked in the past 12 months: No Aproximately how many cigarettes per day: 0 - Social History Usual Living Arrangement: With Child ADL: Independent History of Recent Travel: No Home Medications - Allergies Allergies/Adverse Reactions: Allergies Allergy/AdvReac Type Severity Reaction Status Date / Time Fish Containing Products Allergy Verified 10/31/19 14:39 No Known Drug Allergies Allergy Verified 10/31/19 14:39 cat scan dye Allergy Uncoded 10/31/19 14:39 - Home Medications Home Medications: Ambulatory Orders Calcium Carbonate/Vitamin D3 [Calcium 500 + Vit D Caplet] 1 each PO DAILY Meloxicam 7.5 mg PO DAILY 11/01/19 Metoprolol Succinate [Toprol Xl] 25 mg PO DAILY 11/01/19 Review of Systems - Review of Systems Constitutional: reports: Weakness Eyes: reports: No Symptoms HENT: reports: No Symptoms Neck: reports: No Symptoms Cardiovascular: reports: Shortness of Breath Respiratory: reports: SOB Gastrointestinal: reports: No Symptoms Genitourinary: reports: No Symptoms Breasts: reports: No Symptoms Reported Musculoskeletal: reports: Muscle Weakness Integumentary: reports: No Symptoms Neurological: reports: Weakness Endocrine: reports: No Symptoms Hematology/Lymphatic: reports: No Symptoms Psychiatric: reports: Anxiety - Risk Factors Known Risk Factors: Yes: Age, Hypercholesterolemia, Hypertension, Physical Inactivity Vital Signs: Vital Signs Temperature 99.1 F 11/01/19 06:14 Pulse Rate 91 H 11/01/19 12:03 Respiratory Rate 18 11/01/19 12:03 Blood Pressure 126/74 11/01/19 12:03 O2 Sat by Pulse Oximetry (%) 97 11/01/19 12:03 Constitutional: Yes: Anxious Eyes: Yes: WNL HENT: Yes: WNL Respiratory: Yes: Diminished, SOB, Tachypnea, Wheezes Renal/: No: Anuria Cardiovascular: Yes: Tachycardia JVD: Yes Carotid Bruit: No PMI: Displaced Heart Sounds: Yes: S1, S2, S4 Murmur: Yes: Systolic Murmur, Grade 2 Musculoskeletal: Yes: Muscle Weakness Extremities: Yes: Other Edema: Yes Edema: LLE: 2+, RLE: 2+ Peripheral Pulses WNL: Yes Integumentary: Yes: WNL Neurological: Yes: Alert, Oriented, Weakness Psychiatric: Yes: Alert, Oriented - Other Data Labs, Other Data: CBC, BMP 11/01/19 10:30 11/01/19 10:30 INR, PTT INR 1.19 (0.83-1.09) H 10/31/19 16:00 Troponin, BNP 10/31/19 10/31/19 11/01/19 16:00 20:34 10:30 Troponin I 0.03 0.04 0.05 B-Natriuretic Peptide 5286.2 H Troponin, BNP 10/31/19 10/31/19 11/01/19 16:00 20:34 10:30 Troponin I 0.03 0.04 0.05 B-Natriuretic Peptide 5286.2 H Abnormal Lab Results 11/01/19 11/01/19 11/02/19 10:30 10:30 05:50 Plt Count 106 L 108 L MPV 11.3 H Monocytes % 17.2 H 18.4 H Potassium Carbon Dioxide 35 H Anion Gap 4 L Random Glucose Calcium 8.4 L Total Protein 6.0 L Albumin 3.0 L 11/02/19 05:50 Plt Count MPV Monocytes % Potassium 3.1 L Carbon Dioxide 36 H Anion Gap 7 L Random Glucose 108 H Calcium Total Protein 6.0 L Albumin 3.0 L Echo: Report Reviewed Ejection Fraction %: LVEF > or = 40 % Imaging - Results Chest X-ray: Image Reviewed EKG: Image Reviewed Other: Image Reviewed (telemetry: NSR; periods of sinus tachycardia.) Problem List - Problems (1) Acute on chronic systolic (congestive) heart failure Assessment/Plan: On lisinopril, metoprolol, furosemide. F/u BUN/Cr, electrolytes, daily weight, Is and Os. Consider starting spironolactone. Code(s): I50.23 - ACUTE ON CHRONIC SYSTOLIC (CONGESTIVE) HEART FAILURE (2) Hypothyroid Assessment/Plan: f/u TFTs. Code(s): E03.9 - HYPOTHYROIDISM, UNSPECIFIED (3) Malaise and fatigue Code(s): R53.81 - OTHER MALAISE; R53.83 - OTHER FATIGUE (4) Upper respiratory infection Code(s): J06.9 - ACUTE UPPER RESPIRATORY INFECTION, UNSPECIFIED Qualifiers: URI type: unspecified URI Qualified Code(s): J06.9 - Acute upper respiratory infection, unspecified
[2019-11-01] MEDS: HEPARIN NA (PORCINE) 5,000 UNITS/ML 1ML VIAL SQ SCH (22:07)
[2019-11-01] MEDS ORDERED: FUROSEMIDE 40 MG/4 ML INJECTABLE VIAL IVPUSH ONE (23:51)
[2019-11-02] MEDS ORDERED: diphenhydrAMINE HCL 25 MG CAPSULE (FP) PO ONE (00:56)
[2019-11-02] MEDS: ALBUTEROL SO4 0.083% IH SOL 2.5 MG/3 ML VIAL.NEB. NEB PRN (01:30)
[2019-11-02 06:53] LABS: BASO % 0.6 % (0-2.0); EOS % 0.8 % (0-4.5); HEMATOCRIT 35.4 % (32.4-45.2); HEMOGLOBIN 11.8 GM/dL (10.7-15.3); LYMPH % 9.6 % (8-40); MCHC 33.4 g/dl (32.0-36.0); MEAN CELL VOLUME 92.7 fl (80-96); MEAN PLT VOLUME 11.3 fl (7.5-11.1); MONO % 18.4 % (3.8-10.2); NEUT % 70.6 % (42.8-82.8); PLATELET COUNT 108 K/MM3 (134-434); RBC 3.82 M/mm3 (3.60-5.2); WHITE BLOOD COUNT 6.5 K/mm3 (4.0-10.0)
[2019-11-02 07:29] LABS: BILIRUBIN,TOTAL 0.8 mg/dL (0.2-1); BLOOD UREA NITROGEN 10.2 mg/dL (7-18); CALCIUM 8.8 mg/dL (8.5-10.1); CREATININE 0.7 mg/dL (0.55-1.3); POTASSIUM 3.1 mmol/L (3.5-5.1)
[2019-11-02] MEDS ORDERED: ALBUTEROL SO4 0.083% IH SOL 2.5 MG/3 ML VIAL.NEB. NEB SCH (08:00)
[2019-11-02] MEDS: ALBUTEROL SO4 2.5/IPRATROPIUM 0.5 INH SOL 3 ML VIAL.NEB. NEB SCH ×4 (08:29→20:50)
[2019-11-02] MEDS: HEPARIN NA (PORCINE) 5,000 UNITS/ML 1ML VIAL SQ SCH ×2 (09:34→21:26)
[2019-11-02] MEDS: FUROSEMIDE 40 MG/4 ML INJECTABLE VIAL IVPUSH SCH (09:34)
[2019-11-02] MEDS: LISINOPRIL 5 MG TABLET (FP) PO SCH (10:34)
[2019-11-02] MEDS ORDERED: POTASSIUM CHLORIDE ORAL LIQUID 20 MEQ/15 ML PO ONE (11:00)
[2019-11-02] MEDS: METOPROLOL TARTRATE 25 MG TABLET (FP) PO SCH ×2 (11:02→21:26)
--- NOTE | 2019-11-02 11:53 | EKG ---
Test Reason : Blood Pressure : / mmHG Vent. Rate : 083 BPM Atrial Rate : 083 BPM P-R Int : 218 ms QRS Dur : 110 ms QT Int : 416 ms P-R-T Axes : 017 -44 -83 degrees QTc Int : 488 ms SINUS RHYTHM WITH 1ST DEGREE A-V BLOCK WITH PREMATURE ATRIAL COMPLEXES LEFT AXIS DEVIATION MODERATE VOLTAGE CRITERIA FOR LVH, MAY BE NORMAL VARIANT T WAVE ABNORMALITY, CONSIDER INFERIOR ISCHEMIA T WAVE ABNORMALITY, CONSIDER ANTEROLATERAL ISCHEMIA PROLONGED QT ABNORMAL ECG WHEN COMPARED WITH ECG OF 31-OCT-2019 19:43, PREMATURE ATRIAL COMPLEXES ARE NOW PRESENT T WAVE INVERSION NOW EVIDENT IN INFERIOR LEADS T WAVE INVERSION NOW EVIDENT IN ANTERIOR LEADS Confirmed by GIO HOUSTON, SUMA ([id number]) on 11/02/2019 11:52:51 AM Referred By: BRENTON SHETH Confirmed By:SUMA POWERS MD
[2019-11-02 12:27] LABS: MAGNESIUM 1.7 mg/dL (1.8-2.4)
--- NOTE | 2019-11-02 20:51 | PN ---
Progress Note, Physician History of Present Illness: Pt still w/ SOB - Current Medication List Current Medications: Active Medications Albuterol Sulfate (Ventolin 0.083% Nebulizer Soln -) 1 amp NEB RQID PRN PRN Reason: SHORT OF BREATH/WHEEZING Last Admin: 11/02/19 01:30 Dose: 1 amp Albuterol/Ipratropium (Duoneb -) 1 amp NEB RQID [facility] Last Admin: 11/02/19 15:39 Dose: 1 amp Furosemide (Lasix Injection -) 40 mg IVPUSH DAILY [facility] Last Admin: 11/02/19 09:34 Dose: 40 mg Heparin Sodium (Porcine) (Heparin -) 5,000 unit SQ BID [facility] Last Admin: 11/02/19 09:34 Dose: 5,000 unit Lisinopril (Prinivil) 5 mg PO DAILY [facility] Last Admin: 11/02/19 10:34 Dose: 5 mg Metoprolol Tartrate (Lopressor -) 25 mg PO BID [facility] Last Admin: 11/02/19 11:02 Dose: 25 mg - Objective Vital Signs: Vital Signs Temperature 98 F 11/02/19 18:00 Pulse Rate 83 11/02/19 18:00 Respiratory Rate 22 H 11/02/19 18:00 Blood Pressure 138/64 11/02/19 18:00 O2 Sat by Pulse Oximetry (%) 96 11/02/19 09:00 Labs: CBC, BMP 11/02/19 05:50 11/02/19 05:50 INR, PTT INR 1.19 (0.83-1.09) H 10/31/19 16:00
[2019-11-02] MEDS: QUEtiapine FUMARATE 25 MG TABLET (FP) PO PRN (22:00)
[2019-11-03] MEDS: ALBUTEROL SO4 2.5/IPRATROPIUM 0.5 INH SOL 3 ML VIAL.NEB. NEB SCH ×4 (08:35→20:39)
[2019-11-03] MEDS ORDERED: PT OWN MED DRAWER 7, Y5N ONE (10:09)
[2019-11-03] MEDS: LISINOPRIL 5 MG TABLET (FP) PO SCH (10:10)
[2019-11-03] MEDS: FUROSEMIDE 40 MG/4 ML INJECTABLE VIAL IVPUSH SCH ×2 (10:10→17:30)
[2019-11-03] MEDS: METOPROLOL TARTRATE 25 MG TABLET (FP) PO SCH ×2 (10:10→21:34)
[2019-11-03] MEDS: HEPARIN NA (PORCINE) 5,000 UNITS/ML 1ML VIAL SQ SCH ×2 (10:10→21:34)
--- NOTE | 2019-11-03 19:42 | PN ---
Progress Note, Physician Chief Complaint: Pt denies chest pain; SOB on mild exertion. History of Present Illness: 84 YOF with h/o systolic CHF (moderate systolic LV dysfunction on 10/2019 ECHO) , HTN, HLD, CVA, GERD, hypothyroidism, diverticolosis, obesity, s/p cholecystectomy, now admitted with SOB (unable to lie flat) x 72 hours; denies chest pain. - Current Medication List Current Medications: Active Medications Albuterol Sulfate (Ventolin 0.083% Nebulizer Soln -) 1 amp NEB RQID PRN PRN Reason: SHORT OF BREATH/WHEEZING Last Admin: 11/02/19 01:30 Dose: 1 amp Albuterol/Ipratropium (Duoneb -) 1 amp NEB RQID [facility] Last Admin: 11/03/19 16:07 Dose: 1 amp Furosemide (Lasix Injection -) 40 mg IVPUSH DAILY [facility] Last Admin: 11/03/19 17:30 Dose: Not Given Heparin Sodium (Porcine) (Heparin -) 5,000 unit SQ BID [facility] Last Admin: 11/03/19 10:10 Dose: 5,000 unit Lisinopril (Prinivil) 5 mg PO DAILY [facility] Last Admin: 11/03/19 10:10 Dose: 5 mg Metoprolol Tartrate (Lopressor -) 25 mg PO BID [facility] Last Admin: 11/03/19 10:10 Dose: 25 mg Quetiapine Fumarate (Seroquel -) 25 mg PO HS PRN PRN Reason: INSOMNIA Last Admin: 11/02/19 22:00 Dose: 25 mg Spironolactone (Aldactone -) 25 mg PO DAILY [facility] - Objective Vital Signs: Vital Signs Temperature 98.0 F 11/03/19 18:00 Pulse Rate 81 11/03/19 18:00 Respiratory Rate 19 11/03/19 18:00 Blood Pressure 123/69 11/03/19 18:00 O2 Sat by Pulse Oximetry (%) 95 11/03/19 09:00 Constitutional: Yes: Anxious, Obese Eyes: Yes: WNL HENT: Yes: WNL Neck: Yes: WNL Cardiovascular: Yes: S1 (split), S2 Respiratory: Yes: Diminished Gastrointestinal: Yes: Soft ...Rectal Exam: Yes: Deferred Genitourinary: Yes: Anuria Breast(s): Yes: WNL Musculoskeletal: Yes: Muscle Weakness Peripheral Pulses WNL: Yes Integumentary: Yes: WNL Neurological: Yes: Alert, Weakness Psychiatric: Yes: Other Labs: CBC, BMP 11/02/19 05:50 11/02/19 05:50 INR, PTT INR 1.19 (0.83-1.09) H 10/31/19 16:00 Abnormal Lab Results 11/03/19 19:45 Carbon Dioxide 38 H Anion Gap 5 L Calcium 8.3 L Magnesium 1.5 L - ....Imaging Chest X-ray: Image Reviewed EKG: Image Reviewed Problem List - Problems (1) Acute on chronic systolic (congestive) heart failure Assessment/Plan: On lisinopril, metoprolol, furosemide. F/u BUN/Cr, electrolytes, daily weight, Is and Os. Consider starting spironolactone. Code(s): I50.23 - ACUTE ON CHRONIC SYSTOLIC (CONGESTIVE) HEART FAILURE (2) Hypothyroid Assessment/Plan: mildly elevated TSH; normal free T4. Code(s): E03.9 - HYPOTHYROIDISM, UNSPECIFIED (3) Malaise and fatigue Code(s): R53.81 - OTHER MALAISE; R53.83 - OTHER FATIGUE (4) Upper respiratory infection Code(s): J06.9 - ACUTE UPPER RESPIRATORY INFECTION, UNSPECIFIED Qualifiers: URI type: unspecified URI Qualified Code(s): J06.9 - Acute upper respiratory infection, unspecified
--- NOTE | 2019-11-03 19:43 | PN ---
Progress Note, Physician Chief Complaint: Pt is tired. Her son, at bedside, mentions she has had cough with phlegm for several days prior to admission. History of Present Illness: 84 YOF with h/o systolic CHF (moderate systolic LV dysfunction on 10/2019 ECHO) , HTN, HLD, CVA, GERD, hypothyroidism, diverticolosis, obesity, s/p cholecystectomy, now admitted with SOB (unable to lie flat) x 72 hours; denies chest pain. - Current Medication List Current Medications: Active Medications Albuterol Sulfate (Ventolin 0.083% Nebulizer Soln -) 1 amp NEB RQID PRN PRN Reason: SHORT OF BREATH/WHEEZING Last Admin: 11/02/19 01:30 Dose: 1 amp Albuterol/Ipratropium (Duoneb -) 1 amp NEB RQID [facility] Last Admin: 11/03/19 16:07 Dose: 1 amp Furosemide (Lasix Injection -) 40 mg IVPUSH DAILY [facility] Last Admin: 11/03/19 17:30 Dose: Not Given Heparin Sodium (Porcine) (Heparin -) 5,000 unit SQ BID [facility] Last Admin: 11/03/19 10:10 Dose: 5,000 unit Lisinopril (Prinivil) 5 mg PO DAILY [facility] Last Admin: 11/03/19 10:10 Dose: 5 mg Metoprolol Tartrate (Lopressor -) 25 mg PO BID [facility] Last Admin: 11/03/19 10:10 Dose: 25 mg Quetiapine Fumarate (Seroquel -) 25 mg PO HS PRN PRN Reason: INSOMNIA Last Admin: 11/02/19 22:00 Dose: 25 mg Spironolactone (Aldactone -) 25 mg PO DAILY [facility] - Objective Vital Signs: Vital Signs Temperature 98.0 F 11/03/19 18:00 Pulse Rate 81 11/03/19 18:00 Respiratory Rate 19 11/03/19 18:00 Blood Pressure 123/69 11/03/19 18:00 O2 Sat by Pulse Oximetry (%) 95 11/03/19 09:00 Constitutional: Yes: Anxious, Obese Eyes: Yes: WNL Cardiovascular: Yes: S1 (split), S2 Respiratory: Yes: Diminished Gastrointestinal: Yes: Soft ...Rectal Exam: Yes: Deferred Genitourinary: No: Anuria Breast(s): Yes: WNL Musculoskeletal: Yes: Muscle Weakness Extremities: Yes: Cool Edema: No Peripheral Pulses WNL: Yes Integumentary: Yes: WNL Neurological: Yes: Alert, Weakness Psychiatric: Yes: Other Labs: CBC, BMP 11/02/19 05:50 11/02/19 05:50 INR, PTT INR 1.19 (0.83-1.09) H 10/31/19 16:00 Abnormal Lab Results 11/03/19 19:45 Carbon Dioxide 38 H Anion Gap 5 L Calcium 8.3 L Magnesium 1.5 L Problem List - Problems (1) Acute on chronic systolic (congestive) heart failure Assessment/Plan: On lisinopril, metoprolol, furosemide. F/u BUN/Cr, electrolytes, daily weight, Is and Os. Start spironolactone. Increase dose of lisinopril as tolerated. F/u low potassium (keep 4.0-4.5) and magnesium (keep 2.0-2.4). Code(s): I50.23 - ACUTE ON CHRONIC SYSTOLIC (CONGESTIVE) HEART FAILURE (2) Hypothyroid Assessment/Plan: f/u TFTs. Code(s): E03.9 - HYPOTHYROIDISM, UNSPECIFIED (3) Malaise and fatigue Code(s): R53.81 - OTHER MALAISE; R53.83 - OTHER FATIGUE (4) Upper respiratory infection Code(s): J06.9 - ACUTE UPPER RESPIRATORY INFECTION, UNSPECIFIED Qualifiers: URI type: unspecified URI Qualified Code(s): J06.9 - Acute upper respiratory infection, unspecified
[2019-11-03 20:20] LABS: CREATININE 0.8 mg/dL (0.55-1.3)
[2019-11-03 20:21] LABS: CALCIUM 8.3 mg/dL (8.5-10.1); MAGNESIUM 1.5 mg/dL (1.8-2.4); POTASSIUM 3.5 mmol/L (3.5-5.1)
[2019-11-03] MEDS: SPIRONOLACTONE 25 MG TABLET (FP) PO SCH (20:37)
[2019-11-03] MEDS: QUEtiapine FUMARATE 25 MG TABLET (FP) PO PRN (22:59)
--- NOTE | 2019-11-03 23:49 | PN ---
Progress Note, Physician - Current Medication List Current Medications: Active Medications Albuterol Sulfate (Ventolin 0.083% Nebulizer Soln -) 1 amp NEB RQID PRN PRN Reason: SHORT OF BREATH/WHEEZING Last Admin: 11/02/19 01:30 Dose: 1 amp Albuterol/Ipratropium (Duoneb -) 1 amp NEB RQID [facility] Last Admin: 11/03/19 20:39 Dose: 1 amp Furosemide (Lasix Injection -) 40 mg IVPUSH DAILY [facility] Last Admin: 11/03/19 17:30 Dose: Not Given Heparin Sodium (Porcine) (Heparin -) 5,000 unit SQ BID [facility] Last Admin: 11/03/19 21:34 Dose: 5,000 unit Lisinopril (Prinivil) 5 mg PO DAILY [facility] Last Admin: 11/03/19 10:10 Dose: 5 mg Metoprolol Tartrate (Lopressor -) 25 mg PO BID [facility] Last Admin: 11/03/19 21:34 Dose: 25 mg Quetiapine Fumarate (Seroquel -) 25 mg PO HS PRN PRN Reason: INSOMNIA Last Admin: 11/03/19 22:59 Dose: 25 mg Spironolactone (Aldactone -) 25 mg PO DAILY [facility] Last Admin: 11/03/19 20:37 Dose: 25 mg - Objective Vital Signs: Vital Signs Temperature 98.0 F 11/03/19 18:00 Pulse Rate 81 11/03/19 18:00 Respiratory Rate 19 11/03/19 18:00 Blood Pressure 123/69 11/03/19 18:00 O2 Sat by Pulse Oximetry (%) 98 11/03/19 21:00 Labs: CBC, BMP 11/02/19 05:50 11/03/19 19:45 INR, PTT INR 1.19 (0.83-1.09) H 10/31/19 16:00
[2019-11-04] MEDS: ALBUTEROL SO4 2.5/IPRATROPIUM 0.5 INH SOL 3 ML VIAL.NEB. NEB SCH ×4 (08:50→20:40)
[2019-11-04] MEDS: FUROSEMIDE 40 MG/4 ML INJECTABLE VIAL IVPUSH SCH (09:51)
[2019-11-04] MEDS: HEPARIN NA (PORCINE) 5,000 UNITS/ML 1ML VIAL SQ SCH ×2 (09:51→21:29)
[2019-11-04] MEDS: LISINOPRIL 5 MG TABLET (FP) PO SCH ×2 (09:51→21:30)
[2019-11-04] MEDS: SPIRONOLACTONE 25 MG TABLET (FP) PO SCH (09:51)
[2019-11-04] MEDS: METOPROLOL TARTRATE 25 MG TABLET (FP) PO SCH ×2 (09:51→21:30)
--- NOTE | 2019-11-04 10:00 | PN ---
Progress Note, Physician Chief Complaint: Cardiology for Dr. Humphreys History of Present Illness: 84 YOF with h/o systolic CHF (moderate systolic LV dysfunction on 10/2019 ECHO) , HTN, HLD, CVA, GERD, hypothyroidism, diverticulosis, obesity, s/p cholecystectomy, admitted with orthopnea and cough since improved with diuresis , denies chest pain, sitting in chair. - Current Medication List Current Medications: Active Medications Albuterol Sulfate (Ventolin 0.083% Nebulizer Soln -) 1 amp NEB RQID PRN PRN Reason: SHORT OF BREATH/WHEEZING Last Admin: 11/02/19 01:30 Dose: 1 amp Albuterol/Ipratropium (Duoneb -) 1 amp NEB RQID [facility] Last Admin: 11/04/19 08:50 Dose: 1 amp Furosemide (Lasix Injection -) 40 mg IVPUSH DAILY [facility] Last Admin: 11/04/19 09:51 Dose: 40 mg Heparin Sodium (Porcine) (Heparin -) 5,000 unit SQ BID [facility] Last Admin: 11/04/19 09:51 Dose: 5,000 unit Lisinopril (Prinivil) 5 mg PO DAILY [facility] Last Admin: 11/04/19 09:51 Dose: 5 mg Metoprolol Tartrate (Lopressor -) 25 mg PO BID [facility] Last Admin: 11/04/19 09:51 Dose: 25 mg Quetiapine Fumarate (Seroquel -) 25 mg PO HS PRN PRN Reason: INSOMNIA Last Admin: 11/03/19 22:59 Dose: 25 mg Spironolactone (Aldactone -) 25 mg PO DAILY [facility] Last Admin: 11/04/19 09:51 Dose: 25 mg - Objective Vital Signs: Vital Signs Temperature 97.8 F 11/04/19 08:40 Pulse Rate 78 11/04/19 08:40 Respiratory Rate 18 11/04/19 08:40 Blood Pressure 117/62 11/04/19 08:40 O2 Sat by Pulse Oximetry (%) 98 11/03/19 21:00 Constitutional: Yes: No Distress, Calm Neck: Yes: Supple Cardiovascular: Yes: Regular Rate and Rhythm Respiratory: Yes: Regular, Diminished Gastrointestinal: Yes: Normal Bowel Sounds, Soft Edema: Yes Edema: LLE: 1+, RLE: 1+ Labs: CBC, BMP 11/02/19 05:50 11/03/19 19:45 INR, PTT INR 1.19 (0.83-1.09) H 10/31/19 16:00 - ....Imaging EKG: Report Reviewed (Tele: NSR) Assessment/Plan Problem List - Problems (1) Acute on chronic systolic (congestive) heart failure Assessment/Plan: On lisinopril 5 qd, metoprolol 25 bid, furosemide 40 IV qd, spirinolactone 25 qd F/u BUN/Cr, electrolytes, daily weight, Is and Os. Increase dose of lisinopril 5 bid as tolerated. F/u low potassium (keep 4.0-4.5) and magnesium (keep 2.0-2.4). Code(s): I50.23 - ACUTE ON CHRONIC SYSTOLIC (CONGESTIVE) HEART FAILURE (2) Hypothyroid Assessment/Plan: f/u TFTs. Code(s): E03.9 - HYPOTHYROIDISM, UNSPECIFIED (3) Malaise and fatigue Code(s): R53.81 - OTHER MALAISE; R53.83 - OTHER FATIGUE (4) Upper respiratory infection Code(s): J06.9 - ACUTE UPPER RESPIRATORY INFECTION, UNSPECIFIED Qualifiers: URI type: unspecified URI Qualified Code(s): J06.9 - Acute upper respiratory infection, unspecified
[2019-11-04] MEDS ORDERED: POTASSIUM CHLORIDE TABS 20 MEQ TABLET.ER (FP) PO ONE (12:54)
[2019-11-04] MEDS ORDERED: MAGNESIUM OXIDE 400 MG TABLET (FP) PO ONE (12:55)
[2019-11-04] MEDS: QUEtiapine FUMARATE 25 MG TABLET (FP) PO PRN (21:30)
--- NOTE | 2019-11-04 22:13 | PN ---
Progress Note, Physician - Current Medication List Current Medications: Active Medications Albuterol Sulfate (Ventolin 0.083% Nebulizer Soln -) 1 amp NEB RQID PRN PRN Reason: SHORT OF BREATH/WHEEZING Last Admin: 11/02/19 01:30 Dose: 1 amp Albuterol/Ipratropium (Duoneb -) 1 amp NEB RQID [facility] Last Admin: 11/04/19 20:40 Dose: 1 amp Furosemide (Lasix Injection -) 40 mg IVPUSH DAILY [facility] Last Admin: 11/04/19 09:51 Dose: 40 mg Heparin Sodium (Porcine) (Heparin -) 5,000 unit SQ BID [facility] Last Admin: 11/04/19 21:29 Dose: 5,000 unit Lisinopril (Prinivil) 5 mg PO BID [facility] Last Admin: 11/04/19 21:30 Dose: 5 mg Metoprolol Tartrate (Lopressor -) 25 mg PO BID [facility] Last Admin: 11/04/19 21:30 Dose: 25 mg Quetiapine Fumarate (Seroquel -) 25 mg PO HS PRN PRN Reason: INSOMNIA Last Admin: 11/04/19 21:30 Dose: 25 mg Spironolactone (Aldactone -) 25 mg PO DAILY [facility] Last Admin: 11/04/19 09:51 Dose: 25 mg - Objective Vital Signs: Vital Signs Temperature 98.1 F 11/04/19 14:00 Pulse Rate 79 11/04/19 14:00 Respiratory Rate 18 11/04/19 14:00 Blood Pressure 103/50 L 11/04/19 14:00 O2 Sat by Pulse Oximetry (%) 90 L 11/04/19 09:00 Labs: CBC, BMP 11/02/19 05:50 11/03/19 19:45 INR, PTT INR 1.19 (0.83-1.09) H 10/31/19 16:00
[2019-11-05] MEDS: guaiFENesin 200 MG/10 ML 10 ML UNIT-DOSE CUPS PO PRN ×3 (00:11→20:06)
[2019-11-05 07:35] LABS: BASO % 0.6 % (0-2.0); EOS % 5.5 % (0-4.5); HEMATOCRIT 32.9 % (32.4-45.2); HEMOGLOBIN 10.6 GM/dL (10.7-15.3); MCH 30.3 pg (25.7-33.7); MCHC 32.3 g/dl (32.0-36.0); MEAN CELL VOLUME 93.8 fl (80-96); MEAN PLT VOLUME 12.2 fl (7.5-11.1); NEUT % 52.9 % (42.8-82.8); PLATELET COUNT 101 K/MM3 (134-434); RBC 3.51 M/mm3 (3.60-5.2); WHITE BLOOD COUNT 4.8 K/mm3 (4.0-10.0)
[2019-11-05 07:47] LABS: ALBUMIN 2.6 g/dl (3.4-5.0); BILIRUBIN,TOTAL 0.5 mg/dL (0.2-1); BLOOD UREA NITROGEN 16.5 mg/dL (7-18); CALCIUM 8.7 mg/dL (8.5-10.1); CREATININE 0.7 mg/dL (0.55-1.3); POTASSIUM 3.9 mmol/L (3.5-5.1); TOT PROT 5.5 g/dl (6.4-8.2)
[2019-11-05] MEDS: ALBUTEROL SO4 2.5/IPRATROPIUM 0.5 INH SOL 3 ML VIAL.NEB. NEB SCH ×4 (08:34→20:55)
[2019-11-05 09:16] LABS: ANISOCYTOSIS 0; MACROCYTOSIS 0; PLATELET ESTIMATE DECREASED
[2019-11-05] MEDS: METOPROLOL TARTRATE 25 MG TABLET (FP) PO SCH ×2 (11:15→21:42)
[2019-11-05] MEDS: SPIRONOLACTONE 25 MG TABLET (FP) PO SCH (11:15)
[2019-11-05] MEDS: LISINOPRIL 5 MG TABLET (FP) PO SCH ×2 (11:16→21:42)
[2019-11-05] MEDS: FUROSEMIDE 40 MG/4 ML INJECTABLE VIAL IVPUSH SCH (11:16)
[2019-11-05] MEDS: HEPARIN NA (PORCINE) 5,000 UNITS/ML 1ML VIAL SQ SCH ×2 (11:20→21:42)
--- NOTE | 2019-11-05 12:29 | PN ---
Progress Note, Physician Chief Complaint: Cardiology for Dr. Humphreys History of Present Illness: 84 YOF with h/o systolic CHF (moderate systolic LV dysfunction on 10/2019 ECHO) , HTN, HLD, CVA, GERD, hypothyroidism, diverticulosis, obesity, s/p cholecystectomy, admitted with orthopnea and cough since improved with diuresis , denies chest pain, sitting in chair eating lunch. - Current Medication List Current Medications: Active Medications Albuterol Sulfate (Ventolin 0.083% Nebulizer Soln -) 1 amp NEB RQID PRN PRN Reason: SHORT OF BREATH/WHEEZING Last Admin: 11/02/19 01:30 Dose: 1 amp Albuterol/Ipratropium (Duoneb -) 1 amp NEB RQID [facility] Last Admin: 11/05/19 12:08 Dose: 1 amp Furosemide (Lasix Injection -) 40 mg IVPUSH DAILY [facility] Last Admin: 11/05/19 11:16 Dose: 40 mg Guaifenesin (Robitussin -) 5 ml PO Q8H PRN PRN Reason: COUGH Last Admin: 11/05/19 11:21 Dose: 5 ml Heparin Sodium (Porcine) (Heparin -) 5,000 unit SQ BID [facility] Last Admin: 11/05/19 11:20 Dose: 5,000 unit Lisinopril (Prinivil) 5 mg PO BID [facility] Last Admin: 11/05/19 11:16 Dose: 5 mg Metoprolol Tartrate (Lopressor -) 25 mg PO BID [facility] Last Admin: 11/05/19 11:15 Dose: 25 mg Quetiapine Fumarate (Seroquel -) 25 mg PO HS PRN PRN Reason: INSOMNIA Last Admin: 11/04/19 21:30 Dose: 25 mg Spironolactone (Aldactone -) 25 mg PO DAILY [facility] Last Admin: 11/05/19 11:15 Dose: 25 mg - Objective Vital Signs: Vital Signs Temperature 97.9 F 11/04/19 20:00 Pulse Rate 75 11/05/19 04:00 Respiratory Rate 21 H 11/05/19 04:00 Blood Pressure 110/58 L 11/05/19 04:00 O2 Sat by Pulse Oximetry (%) 97 11/04/19 22:00 Constitutional: Yes: No Distress, Calm Neck: Yes: Supple Cardiovascular: Yes: Regular Rate and Rhythm Respiratory: Yes: Regular, CTA Bilaterally Gastrointestinal: Yes: Normal Bowel Sounds, Soft Edema: Yes Edema: LLE: 2+, RLE: 2+ Labs: CBC, BMP 11/05/19 05:44 11/05/19 05:44 INR, PTT INR 1.19 (0.83-1.09) H 10/31/19 16:00 - ....Imaging Chest X-ray: Report Reviewed (Slight decrease in congestion) Assessment/Plan Problem List - Problems (1) Acute on chronic systolic (congestive) heart failure Assessment/Plan: On lisinopril 5 qd, metoprolol 25 bid, furosemide 40 IV qd, spirinolactone 25 qd F/u BUN/Cr, electrolytes, daily weight, Is and Os. Increased dose of lisinopril 5 bid as tolerated. F/u low potassium (keep 4.0-4.5) and magnesium (keep 2.0-2.4). Wrap legs, compression therapy, keel elevated Code(s): I50.23 - ACUTE ON CHRONIC SYSTOLIC (CONGESTIVE) HEART FAILURE (2) Hypothyroid Assessment/Plan: f/u TFTs. Code(s): E03.9 - HYPOTHYROIDISM, UNSPECIFIED (3) Malaise and fatigue Code(s): R53.81 - OTHER MALAISE; R53.83 - OTHER FATIGUE (4) Upper respiratory infection Code(s): J06.9 - ACUTE UPPER RESPIRATORY INFECTION, UNSPECIFIED Qualifiers: URI type: unspecified URI Qualified Code(s): J06.9 - Acute upper respiratory infection, unspecified
--- NOTE | 2019-11-05 21:50 | PN ---
Progress Note, Physician History of Present Illness: No new complaints - Current Medication List Current Medications: Active Medications Albuterol Sulfate (Ventolin 0.083% Nebulizer Soln -) 1 amp NEB RQID PRN PRN Reason: SHORT OF BREATH/WHEEZING Last Admin: 11/02/19 01:30 Dose: 1 amp Albuterol/Ipratropium (Duoneb -) 1 amp NEB RQID [facility] Last Admin: 11/05/19 20:55 Dose: Not Given Furosemide (Lasix Injection -) 40 mg IVPUSH DAILY [facility] Last Admin: 11/05/19 11:16 Dose: 40 mg Guaifenesin (Robitussin -) 5 ml PO Q8H PRN PRN Reason: COUGH Last Admin: 11/05/19 20:06 Dose: 5 ml Heparin Sodium (Porcine) (Heparin -) 5,000 unit SQ BID [facility] Last Admin: 11/05/19 21:42 Dose: 5,000 unit Lisinopril (Prinivil) 5 mg PO BID [facility] Last Admin: 11/05/19 21:42 Dose: 5 mg Metoprolol Tartrate (Lopressor -) 25 mg PO BID [facility] Last Admin: 11/05/19 21:42 Dose: 25 mg Quetiapine Fumarate (Seroquel -) 25 mg PO HS PRN PRN Reason: INSOMNIA Last Admin: 11/04/19 21:30 Dose: 25 mg Spironolactone (Aldactone -) 25 mg PO DAILY [facility] Last Admin: 11/05/19 11:15 Dose: 25 mg - Objective Vital Signs: Vital Signs Temperature 98.6 F 11/05/19 17:59 Pulse Rate 75 11/05/19 17:59 Respiratory Rate 14 11/05/19 17:59 Blood Pressure 114/60 11/05/19 17:59 O2 Sat by Pulse Oximetry (%) 97 11/05/19 21:00 Neck: Yes: WNL, Supple Cardiovascular: Yes: WNL, Regular Rate and Rhythm Respiratory: Yes: Diminished Labs: CBC, BMP 11/05/19 05:44 11/05/19 05:44 INR, PTT INR 1.19 (0.83-1.09) H 10/31/19 16:00 Problem List - Problems (1) Acute on chronic systolic (congestive) heart failure Assessment/Plan: Cont IV lasix Cont aldactone Monitor electrolytes CXR showed only minimal improvement in congestion Code(s): I50.23 - ACUTE ON CHRONIC SYSTOLIC (CONGESTIVE) HEART FAILURE (2) HTN (hypertension) Assessment/Plan: Cont metoprolol/lisinopril Code(s): I10 - ESSENTIAL (PRIMARY) HYPERTENSION (3) HLD (hyperlipidemia) Code(s): E78.5 - HYPERLIPIDEMIA, UNSPECIFIED (4) Hypothyroid Assessment/Plan: Pt not on levothyroxine TSH is only minimally borderline Repeat TSH in 4-6 weeks Code(s): E03.9 - HYPOTHYROIDISM, UNSPECIFIED (5) CAD (coronary artery disease) Code(s): I25.10 - ATHSCL HEART DISEASE OF [place] CORONARY ARTERY W/O ANG PCTRS
[2019-11-05] MEDS: QUEtiapine FUMARATE 25 MG TABLET (FP) PO PRN (22:18)
[2019-11-06 06:48] LABS: BASO % 0.6 % (0-2.0); EOS % 4.9 % (0-4.5); HEMATOCRIT 33.3 % (32.4-45.2); LYMPH % 24.2 % (8-40); MCH 30.7 pg (25.7-33.7); MCHC 32.9 g/dl (32.0-36.0); MEAN CELL VOLUME 93.3 fl (80-96); MEAN PLT VOLUME 11.1 fl (7.5-11.1); MONO % 21.8 % (3.8-10.2); NEUT % 48.5 % (42.8-82.8); PLATELET COUNT 105 K/MM3 (134-434); RBC 3.57 M/mm3 (3.60-5.2); RDW 14.1 % (11.6-15.6); WHITE BLOOD COUNT 4.8 K/mm3 (4.0-10.0)
[2019-11-06 07:03] LABS: ALBUMIN 2.6 g/dl (3.4-5.0); BILIRUBIN,TOTAL 0.5 mg/dL (0.2-1); BLOOD UREA NITROGEN 16.9 mg/dL (7-18); CALCIUM 8.8 mg/dL (8.5-10.1); CREATININE 0.7 mg/dL (0.55-1.3); POTASSIUM 4.1 mmol/L (3.5-5.1); TOT PROT 5.6 g/dl (6.4-8.2)
[2019-11-06] MEDS: ALBUTEROL SO4 2.5/IPRATROPIUM 0.5 INH SOL 3 ML VIAL.NEB. NEB SCH ×4 (08:00→20:30)
[2019-11-06] MEDS: METOPROLOL TARTRATE 25 MG TABLET (FP) PO SCH ×2 (09:04→21:45)
[2019-11-06] MEDS: SPIRONOLACTONE 25 MG TABLET (FP) PO SCH (09:04)
[2019-11-06] MEDS: LISINOPRIL 5 MG TABLET (FP) PO SCH ×2 (09:05→21:45)
[2019-11-06] MEDS: FUROSEMIDE 40 MG/4 ML INJECTABLE VIAL IVPUSH SCH (09:05)
[2019-11-06] MEDS: HEPARIN NA (PORCINE) 5,000 UNITS/ML 1ML VIAL SQ SCH ×2 (09:05→21:44)
[2019-11-06 13:03] LABS: ANISOCYTOSIS 0; MACROCYTOSIS 0; PLATELET ESTIMATE DECREASED
[2019-11-06] MEDS: QUEtiapine FUMARATE 25 MG TABLET (FP) PO PRN (21:45)
[2019-11-06] MEDS: guaiFENesin 200 MG/10 ML 10 ML UNIT-DOSE CUPS PO PRN (21:45)
[2019-11-07] MEDS: ALBUTEROL SO4 0.083% IH SOL 2.5 MG/3 ML VIAL.NEB. NEB PRN (00:56)
--- NOTE | 2019-11-07 09:37 | PN ---
Physical Exam: SUBJECTIVE: Patient seen and examined. denies shortness of breath, but continues to wear oxygen at 2 liters. OBJECTIVE: *symphony coverage for Dr. Souza* Patient is an 84 year old female with a significant past medical history of HTN , HLD, CVA, GERD, hypothyroidism, diverticulosis, s/p cholecystectomy presenting to the ED on 10/31/19 with SOB, unable to lie flat, chest pain and abdominal pain/bloating. On exam, patient reports feeling better, not home oxygen dependent, but continues to require oxygen @ 2 liters. In no acute distress. will order pre and post and repeat chest xray. labs ordered and pending. Vital Signs Period Temp Pulse Resp BP Sys/Hernandez Pulse Ox Last 24 Hr 98.3 F 74-84 15-22 94-122/51-65 100 GENERAL: The patient is awake, alert, in no acute distress. HEAD: Normal with no signs of trauma. EYES: PERRL, extraocular movements intact, sclera anicteric, conjunctiva clear. No ptosis. ENT: Ears normal, nares patent, oropharynx clear without exudates, moist mucous membranes. NECK: Trachea midline, full range of motion, supple. LUNGS: diminished lungs sounds bilaterally. HEART: Regular rate and rhythm ABDOMEN: Soft, nontender, nondistended, normoactive bowel sounds EXTREMITIES: no edema. NEUROLOGICAL: Normal speech, gait not observed. PSYCH: Normal mood, normal affect. SKIN: Warm, dry, normal turgor, no rashes or lesions noted Laboratory Results - last 24 hr 11/06/19 11/06/19 05:40 15:45 Neutrophils % (Manual) 47.0 Band Neutrophils % 0.0 Lymphocytes % (Manual) 22.0 D Monocytes % (Manual) 22 H Eosinophils % (Manual) 5.0 H Basophils % (Manual) 0.0 Myelocytes % (Man) 0 Promyelocytes % (Man) 0 Blast Cells % (Manual) 0 Nucleated RBC % 0 Metamyelocytes 0 Hypochromia 0 Platelet Estimate Decreased Polychromasia 0 Poikilocytosis 1+ Anisocytosis 0 Microcytosis 0 Macrocytosis 0 Schistocytes 1+ Magnesium 1.9 Active Medications Generic Name Dose Route Start Last Admin Trade Name Freq PRN Reason Stop Dose Admin Furosemide 40 mg 11/01/19 12:00 11/06/19 09:05 Lasix Injection - IVPUSH 40 mg DAILY YULIET Administration Guaifenesin 5 ml 11/04/19 23:43 11/06/19 21:45 Robitussin - PO 5 ml Q8H PRN Administration COUGH Heparin Sodium (Porcine) 5,000 unit 11/01/19 22:00 11/06/19 21:44 Heparin - SQ 5,000 unit BID YULIET Administration Lisinopril 5 mg 11/04/19 22:00 11/06/19 21:45 Prinivil PO 5 mg BID YULIET Administration Metoprolol Tartrate 25 mg 11/02/19 10:30 11/06/19 21:45 Lopressor - PO 25 mg BID YULIET Administration Quetiapine Fumarate 25 mg 11/02/19 23:12 11/06/19 21:45 Seroquel - PO 25 mg HS PRN Administration INSOMNIA Spironolactone 25 mg 11/03/19 19:45 11/06/19 09:04 Aldactone - PO 25 mg DAILY YULIET Administration ASSESSMENT/PLAN: Problem List - Problems (1) Acute on chronic systolic (congestive) heart failure Assessment/Plan: continue Lasix IV 40mg daily weights, intake and output monitor electrolytes oxygen prn, wean off as tolerated chest xray ordered and pending Keep potassium between 4.0-4.5 and magnesium >2.0 Code(s): I50.23 - ACUTE ON CHRONIC SYSTOLIC (CONGESTIVE) HEART FAILURE (2) CHF exacerbation Assessment/Plan: on lasix, lopressor, bonilla inhibitor and aldactone cardiology following Code(s): I50.9 - HEART FAILURE, UNSPECIFIED (3) Elevated brain natriuretic peptide (BNP) level Code(s): R79.89 - OTHER SPECIFIED ABNORMAL FINDINGS OF BLOOD CHEMISTRY (4) CAD (coronary artery disease) Assessment/Plan: on plavix Code(s): I25.10 - ATHSCL HEART DISEASE OF [place] CORONARY ARTERY W/O ANG PCTRS (5) Prophylactic measure Assessment/Plan: fen no ivf, on lasix monitor electrolytes daily low salt diet heparin bid bowel regimen Code(s): Z29.9 - ENCOUNTER FOR PROPHYLACTIC MEASURES, UNSPECIFIED Visit type - Emergency Visit Emergency Visit: Yes ED Registration Date: 10/31/19 Care time: The patient presented to the Emergency Department on the above date and was hospitalized for further evaluation of their emergent condition. - New Patient This patient is new to me today: Yes Date on this admission: 11/07/19 - Critical Care Critical Care patient: No - Discharge Referral Referred to [facility] No
[2019-11-07] MEDS: SPIRONOLACTONE 25 MG TABLET (FP) PO SCH (09:47)
[2019-11-07] MEDS: HEPARIN NA (PORCINE) 5,000 UNITS/ML 1ML VIAL SQ SCH ×2 (09:47→22:26)
[2019-11-07] MEDS: FUROSEMIDE 40 MG/4 ML INJECTABLE VIAL IVPUSH SCH (09:47)
[2019-11-07] MEDS: LISINOPRIL 5 MG TABLET (FP) PO SCH ×2 (09:48→22:25)
[2019-11-07] MEDS: METOPROLOL TARTRATE 25 MG TABLET (FP) PO SCH ×2 (09:48→22:25)
[2019-11-07 12:18] LABS: BASO % 0.9 % (0-2.0); EOS % 6.3 % (0-4.5); HEMATOCRIT 36.6 % (32.4-45.2); HEMOGLOBIN 11.8 GM/dL (10.7-15.3); LYMPH % 18.9 % (8-40); MCH 30.2 pg (25.7-33.7); MCHC 32.2 g/dl (32.0-36.0); MEAN CELL VOLUME 93.7 fl (80-96); MEAN PLT VOLUME 11.9 fl (7.5-11.1); MONO % 18.7 % (3.8-10.2); NEUT % 55.2 % (42.8-82.8); PLATELET COUNT 122 K/MM3 (134-434); RBC 3.91 M/mm3 (3.60-5.2); RDW 14.4 % (11.6-15.6); WHITE BLOOD COUNT 4.3 K/mm3 (4.0-10.0)
[2019-11-07 12:21] LABS: ALBUMIN 2.9 g/dl (3.4-5.0); BILIRUBIN,TOTAL 0.4 mg/dL (0.2-1); BLOOD UREA NITROGEN 16.7 mg/dL (7-18); CREATININE 0.8 mg/dL (0.55-1.3); MAGNESIUM 1.9 mg/dL (1.8-2.4); POTASSIUM 3.7 mmol/L (3.5-5.1); TOT PROT 6.2 g/dl (6.4-8.2)
[2019-11-07] MEDS: guaiFENesin 200 MG/10 ML 10 ML UNIT-DOSE CUPS PO PRN (19:35)
[2019-11-07] MEDS ORDERED: POTASSIUM CHLORIDE TABS 20 MEQ TABLET.ER (FP) PO ONE (19:49)
[2019-11-07] MEDS ORDERED: MAGNESIUM SULF 50% (8.12 MEQ/2 ML-1 GM VIAL) IVPB ONE (19:50)
[2019-11-07] MEDS: QUEtiapine FUMARATE 25 MG TABLET (FP) PO PRN (22:25)
[2019-11-07] MEDS: DOCUSATE SODIUM 100 MG CAPSULE (FP) PO SCH (22:25)
[2019-11-07] MEDS: SENNOSIDES 8.6MG TABLET (FP) PO SCH (22:26)
[2019-11-08] MEDS: HEPARIN NA (PORCINE) 5,000 UNITS/ML 1ML VIAL SQ SCH (09:41)
[2019-11-08] MEDS: guaiFENesin 200 MG/10 ML 10 ML UNIT-DOSE CUPS PO PRN ×2 (09:41→17:46)
[2019-11-08] MEDS: SPIRONOLACTONE 25 MG TABLET (FP) PO SCH (09:41)
[2019-11-08] MEDS: LISINOPRIL 5 MG TABLET (FP) PO SCH ×2 (09:41→21:40)
[2019-11-08] MEDS: METOPROLOL TARTRATE 25 MG TABLET (FP) PO SCH ×2 (09:42→21:40)
[2019-11-08] MEDS: FUROSEMIDE 40 MG/4 ML INJECTABLE VIAL IVPUSH SCH (09:42)
[2019-11-08] MEDS: DOCUSATE SODIUM 100 MG CAPSULE (FP) PO SCH ×2 (09:42→21:40)
[2019-11-08] MEDS: SENNOSIDES 8.6MG TABLET (FP) PO SCH (21:40)
--- NOTE | 2019-11-08 23:38 | PN ---
Progress Note, Physician - Current Medication List Current Medications: Active Medications Docusate Sodium (Colace -) 100 mg PO BID [facility] Last Admin: 11/08/19 21:40 Dose: 100 mg Furosemide (Lasix Injection -) 40 mg IVPUSH DAILY [facility] Last Admin: 11/08/19 09:42 Dose: 40 mg Guaifenesin (Robitussin -) 5 ml PO Q8H PRN PRN Reason: COUGH Last Admin: 11/08/19 17:46 Dose: 5 ml Lisinopril (Prinivil) 5 mg PO BID [facility] Last Admin: 11/08/19 21:40 Dose: 5 mg Metoprolol Tartrate (Lopressor -) 25 mg PO BID [facility] Last Admin: 11/08/19 21:40 Dose: 25 mg Quetiapine Fumarate (Seroquel -) 25 mg PO HS PRN PRN Reason: INSOMNIA Last Admin: 11/07/19 22:25 Dose: 25 mg Senna (Senna -) 1 tab PO HS [facility] Last Admin: 11/08/19 21:40 Dose: 1 tab Spironolactone (Aldactone -) 25 mg PO DAILY [facility] Last Admin: 11/08/19 09:41 Dose: 25 mg - Objective Vital Signs: Vital Signs Temperature 97.9 F 11/08/19 14:30 Pulse Rate 77 11/08/19 18:00 Respiratory Rate 16 11/08/19 18:00 Blood Pressure 114/65 11/08/19 18:00 O2 Sat by Pulse Oximetry (%) 98 11/08/19 10:00 Labs: CBC, BMP 11/07/19 11:30 11/07/19 11:30 INR, PTT INR 1.19 (0.83-1.09) H 10/31/19 16:00 Problem List - Problems (1) Acute on chronic systolic (congestive) heart failure Code(s): I50.23 - ACUTE ON CHRONIC SYSTOLIC (CONGESTIVE) HEART FAILURE (2) HTN (hypertension) Code(s): I10 - ESSENTIAL (PRIMARY) HYPERTENSION (3) HLD (hyperlipidemia) Code(s): E78.5 - HYPERLIPIDEMIA, UNSPECIFIED (4) Hypothyroid Code(s): E03.9 - HYPOTHYROIDISM, UNSPECIFIED (5) CAD (coronary artery disease) Code(s): I25.10 - ATHSCL HEART DISEASE OF [place] CORONARY ARTERY W/O ANG PCTRS
--- NOTE | 2019-11-09 07:18 | PN ---
Progress Note, Physician Chief Complaint: Pt OOB in chair; alert; denies chest pain; able to walk to bathroom, but + dyspnea on mild exertion. C/o dry cough. Her son is present. History of Present Illness: 84 YOF with h/o systolic CHF (moderate systolic LV dysfunction on 10/2019 ECHO) , HTN, HLD, ?CVA, GERD, hypothyroidism, diverticolosis, obesity, s/p cholecystectomy, now admitted with SOB (unable to lie flat) x 72 hours; denies chest pain. - Current Medication List Current Medications: Active Medications Docusate Sodium (Colace -) 100 mg PO BID [facility] Last Admin: 11/08/19 21:40 Dose: 100 mg Furosemide (Lasix Injection -) 40 mg IVPUSH DAILY [facility] Last Admin: 11/08/19 09:42 Dose: 40 mg Guaifenesin (Robitussin -) 5 ml PO Q8H PRN PRN Reason: COUGH Last Admin: 11/08/19 17:46 Dose: 5 ml Lisinopril (Prinivil) 5 mg PO BID [facility] Last Admin: 11/08/19 21:40 Dose: 5 mg Metoprolol Tartrate (Lopressor -) 25 mg PO BID [facility] Last Admin: 11/08/19 21:40 Dose: 25 mg Quetiapine Fumarate (Seroquel -) 25 mg PO HS PRN PRN Reason: INSOMNIA Last Admin: 11/07/19 22:25 Dose: 25 mg Senna (Senna -) 1 tab PO HS [facility] Last Admin: 11/08/19 21:40 Dose: 1 tab Spironolactone (Aldactone -) 25 mg PO DAILY [facility] Last Admin: 11/08/19 09:41 Dose: 25 mg - Objective Vital Signs: Vital Signs Temperature 98.3 F 11/09/19 00:26 Pulse Rate 72 11/09/19 04:00 Respiratory Rate 15 11/09/19 04:00 Blood Pressure 121/57 L 11/09/19 04:00 O2 Sat by Pulse Oximetry (%) 98 11/09/19 02:59 Constitutional: Yes: Calm Eyes: Yes: WNL HENT: Yes: WNL Neck: Yes: WNL Cardiovascular: Yes: S1, S2 Labs: CBC, BMP 11/07/19 11:30 11/07/19 11:30 INR, PTT INR 1.19 (0.83-1.09) H 10/31/19 16:00 Problem List - Problems (1) Acute on chronic systolic (congestive) heart failure Assessment/Plan: On metoprolol (change to long-acting), furosemide, spironolactone. Will change lisinopril to losartan due to development of "new" dry cough; observe. F/u BUN/Cr, electrolytes (especially important when on both Aldactone and ARB), daily weight, Is and Os. Code(s): I50.23 - ACUTE ON CHRONIC SYSTOLIC (CONGESTIVE) HEART FAILURE (2) Hypothyroid Assessment/Plan: Slightly elevated TSH; normal free T4. Code(s): E03.9 - HYPOTHYROIDISM, UNSPECIFIED (3) Malaise and fatigue Code(s): R53.81 - OTHER MALAISE; R53.83 - OTHER FATIGUE (4) Upper respiratory infection Code(s): J06.9 - ACUTE UPPER RESPIRATORY INFECTION, UNSPECIFIED Qualifiers: URI type: unspecified URI Qualified Code(s): J06.9 - Acute upper respiratory infection, unspecified (5) NSVT (nonsustained ventricular tachycardia) Assessment/Plan: Episode of NSVT overnight. Mg repleted. Moderately reduced LVEF. Continue carvedilol; ACEI changed to ARB due to cough; aldactone; furosemide. Long discussion of pt with her daughter, Amelie, by telephone (son was also present). Pt has had prior cardiac workup. Code(s): I47.2 - VENTRICULAR TACHYCARDIA
[2019-11-09] MEDS: DOCUSATE SODIUM 100 MG CAPSULE (FP) PO SCH ×2 (09:18→21:17)
[2019-11-09] MEDS: SPIRONOLACTONE 25 MG TABLET (FP) PO SCH (09:19)
[2019-11-09] MEDS: FUROSEMIDE 40 MG/4 ML INJECTABLE VIAL IVPUSH SCH (09:19)
[2019-11-09] MEDS: LOSARTAN POTASSIUM 50 MG TABLET (FP) PO SCH (09:19)
[2019-11-09 13:54] VITALS: BMI 27.8
--- NOTE | 2019-11-09 19:27 | PN ---
Progress Note, Physician Chief Complaint: Pt denies chest pain; + dypsnea with mild exertion; +cough History of Present Illness: 84 YOF with h/o systolic CHF (moderate systolic LV dysfunction on 10/2019 ECHO) , HTN, HLD, ?CVA, GERD, hypothyroidism, diverticolosis, obesity, s/p cholecystectomy, now admitted with SOB (unable to lie flat) x 72 hours; denies chest pain. - Current Medication List Current Medications: Active Medications Docusate Sodium (Colace -) 100 mg PO BID [facility] Last Admin: 11/09/19 09:18 Dose: 100 mg Furosemide (Lasix Injection -) 40 mg IVPUSH DAILY [facility] Last Admin: 11/09/19 09:19 Dose: 40 mg Guaifenesin (Robitussin -) 5 ml PO Q8H PRN PRN Reason: COUGH Last Admin: 11/08/19 17:46 Dose: 5 ml Losartan Potassium (Cozaar -) 25 mg PO DAILY [facility] Last Admin: 11/09/19 09:19 Dose: 25 mg Metoprolol Succinate (Toprol Xl -) 50 mg PO DAILY [facility] Last Admin: 11/09/19 09:18 Dose: 50 mg Quetiapine Fumarate (Seroquel -) 25 mg PO HS PRN PRN Reason: INSOMNIA Last Admin: 11/07/19 22:25 Dose: 25 mg Senna (Senna -) 1 tab PO HS [facility] Last Admin: 11/08/19 21:40 Dose: 1 tab Spironolactone (Aldactone -) 25 mg PO DAILY [facility] Last Admin: 11/09/19 09:19 Dose: 25 mg - Objective Vital Signs: Vital Signs Temperature 98.4 F 11/09/19 15:54 Pulse Rate 77 11/09/19 18:10 Respiratory Rate 16 11/09/19 18:10 Blood Pressure 127/66 11/09/19 18:10 O2 Sat by Pulse Oximetry (%) 98 11/09/19 18:11 Constitutional: Yes: Calm Eyes: Yes: WNL HENT: Yes: WNL Neck: Yes: WNL Cardiovascular: Yes: S1 (split), S2 Respiratory: Yes: Diminished, SOB on Exertion Gastrointestinal: Yes: Soft. No: Tenderness ...Rectal Exam: Yes: Deferred Genitourinary: No: Anuria Breast(s): Yes: WNL Musculoskeletal: Yes: Muscle Weakness Extremities: Yes: Cool Edema: No Peripheral Pulses WNL: Yes Integumentary: Yes: WNL Neurological: Yes: Alert, Oriented, Weakness Psychiatric: Yes: WNL Labs: CBC, BMP 11/07/19 11:30 11/07/19 11:30 INR, PTT INR 1.19 (0.83-1.09) H 10/31/19 16:00 - ....Imaging Chest X-ray: Image Reviewed EKG: Image Reviewed Problem List - Problems (1) Acute on chronic systolic (congestive) heart failure Assessment/Plan: On metoprolol tartrate, lisinopril, sprironolactone, furosemide. F/u BUN/Cr, electrolytes, Is and Os, daily weight. Code(s): I50.23 - ACUTE ON CHRONIC SYSTOLIC (CONGESTIVE) HEART FAILURE (2) Hypothyroid Assessment/Plan: Slightly elevated TSH; normal free T4. Code(s): E03.9 - HYPOTHYROIDISM, UNSPECIFIED (3) Malaise and fatigue Code(s): R53.81 - OTHER MALAISE; R53.83 - OTHER FATIGUE (4) Upper respiratory infection Code(s): J06.9 - ACUTE UPPER RESPIRATORY INFECTION, UNSPECIFIED Qualifiers: URI type: unspecified URI Qualified Code(s): J06.9 - Acute upper respiratory infection, unspecified
--- NOTE | 2019-11-09 19:34 | PN ---
Progress Note, Physician Chief Complaint: Pt denies chest pain; easily fatigued. History of Present Illness: 84 YOF with h/o systolic CHF (moderate systolic LV dysfunction on 10/2019 ECHO) , HTN, HLD, ?CVA, GERD, hypothyroidism, diverticolosis, obesity, s/p cholecystectomy, now admitted with SOB (unable to lie flat) x 72 hours; denies chest pain. - Current Medication List Current Medications: Active Medications Docusate Sodium (Colace -) 100 mg PO BID [facility] Last Admin: 11/09/19 09:18 Dose: 100 mg Furosemide (Lasix Injection -) 40 mg IVPUSH DAILY [facility] Last Admin: 11/09/19 09:19 Dose: 40 mg Guaifenesin (Robitussin -) 5 ml PO Q8H PRN PRN Reason: COUGH Last Admin: 11/08/19 17:46 Dose: 5 ml Losartan Potassium (Cozaar -) 25 mg PO DAILY [facility] Last Admin: 11/09/19 09:19 Dose: 25 mg Metoprolol Succinate (Toprol Xl -) 50 mg PO DAILY [facility] Last Admin: 11/09/19 09:18 Dose: 50 mg Quetiapine Fumarate (Seroquel -) 25 mg PO HS PRN PRN Reason: INSOMNIA Last Admin: 11/07/19 22:25 Dose: 25 mg Senna (Senna -) 1 tab PO HS [facility] Last Admin: 11/08/19 21:40 Dose: 1 tab Spironolactone (Aldactone -) 25 mg PO DAILY [facility] Last Admin: 11/09/19 09:19 Dose: 25 mg - Objective Vital Signs: Vital Signs Temperature 98.4 F 11/09/19 15:54 Pulse Rate 77 11/09/19 18:10 Respiratory Rate 16 11/09/19 18:10 Blood Pressure 127/66 11/09/19 18:10 O2 Sat by Pulse Oximetry (%) 98 11/09/19 18:11 Constitutional: Yes: No Distress Eyes: Yes: WNL HENT: Yes: WNL Neck: Yes: WNL Cardiovascular: Yes: S1, S2, S4 Respiratory: Yes: Diminished Gastrointestinal: Yes: Soft ...Rectal Exam: Yes: Deferred Genitourinary: Yes: Anuria Breast(s): Yes: WNL Musculoskeletal: Yes: Muscle Weakness Extremities: Yes: Cool Edema: No Peripheral Pulses WNL: Yes Integumentary: Yes: WNL Neurological: Yes: Alert, Oriented, Weakness Psychiatric: Yes: Alert, Oriented Labs: CBC, BMP 11/07/19 11:30 11/07/19 11:30 INR, PTT INR 1.19 (0.83-1.09) H 10/31/19 16:00 - ....Imaging Other: Image Reviewed (telemetry: NSR; 1st degree AV block) Problem List - Problems (1) Acute on chronic systolic (congestive) heart failure Assessment/Plan: On metoprolol tartrate, lisinopril, sprironolactone, furosemide. F/u BUN/Cr, electrolytes, Is and Os, daily weight. Await records from previous workup (private [employer]). Code(s): I50.23 - ACUTE ON CHRONIC SYSTOLIC (CONGESTIVE) HEART FAILURE (2) Hypothyroid Assessment/Plan: Slightly elevated TSH; normal free T4. Code(s): E03.9 - HYPOTHYROIDISM, UNSPECIFIED (3) Malaise and fatigue Code(s): R53.81 - OTHER MALAISE; R53.83 - OTHER FATIGUE (4) Upper respiratory infection Code(s): J06.9 - ACUTE UPPER RESPIRATORY INFECTION, UNSPECIFIED Qualifiers: URI type: unspecified URI Qualified Code(s): J06.9 - Acute upper respiratory infection, unspecified
[2019-11-09] MEDS: SENNOSIDES 8.6MG TABLET (FP) PO SCH (21:16)
--- NOTE | 2019-11-09 21:21 | PN ---
Progress Note, Physician - Current Medication List Current Medications: Active Medications Docusate Sodium (Colace -) 100 mg PO BID [facility] Last Admin: 11/09/19 21:17 Dose: 100 mg Furosemide (Lasix Injection -) 40 mg IVPUSH DAILY [facility] Last Admin: 11/09/19 09:19 Dose: 40 mg Guaifenesin (Robitussin -) 5 ml PO Q8H PRN PRN Reason: COUGH Last Admin: 11/08/19 17:46 Dose: 5 ml Losartan Potassium (Cozaar -) 25 mg PO DAILY [facility] Last Admin: 11/09/19 09:19 Dose: 25 mg Metoprolol Succinate (Toprol Xl -) 50 mg PO DAILY [facility] Last Admin: 11/09/19 09:18 Dose: 50 mg Quetiapine Fumarate (Seroquel -) 25 mg PO HS PRN PRN Reason: INSOMNIA Last Admin: 11/07/19 22:25 Dose: 25 mg Senna (Senna -) 1 tab PO HS [facility] Last Admin: 11/09/19 21:16 Dose: 1 tab Spironolactone (Aldactone -) 25 mg PO DAILY [facility] Last Admin: 11/09/19 09:19 Dose: 25 mg - Objective Vital Signs: Vital Signs Temperature 98.4 F 11/09/19 15:54 Pulse Rate 78 11/09/19 20:44 Respiratory Rate 16 11/09/19 20:44 Blood Pressure 140/70 11/09/19 20:44 O2 Sat by Pulse Oximetry (%) 98 11/09/19 20:44 Labs: CBC, BMP 11/07/19 11:30 11/07/19 11:30 INR, PTT INR 1.19 (0.83-1.09) H 10/31/19 16:00 Problem List - Problems (1) Acute on chronic systolic (congestive) heart failure Code(s): I50.23 - ACUTE ON CHRONIC SYSTOLIC (CONGESTIVE) HEART FAILURE (2) HTN (hypertension) Code(s): I10 - ESSENTIAL (PRIMARY) HYPERTENSION (3) HLD (hyperlipidemia) Code(s): E78.5 - HYPERLIPIDEMIA, UNSPECIFIED (4) Hypothyroid Code(s): E03.9 - HYPOTHYROIDISM, UNSPECIFIED (5) CAD (coronary artery disease) Code(s): I25.10 - ATHSCL HEART DISEASE OF [place] CORONARY ARTERY W/O ANG PCTRS
[2019-11-10 06:31] LABS: BASO % 0.5 % (0-2.0); EOS % 5.1 % (0-4.5); HEMATOCRIT 35.1 % (32.4-45.2); HEMOGLOBIN 11.4 GM/dL (10.7-15.3); LYMPH % 25.8 % (8-40); MCH 29.8 pg (25.7-33.7); MCHC 32.4 g/dl (32.0-36.0); MEAN CELL VOLUME 92.1 fl (80-96); MEAN PLT VOLUME 11.3 fl (7.5-11.1); MONO % 21.9 % (3.8-10.2); NEUT % 46.7 % (42.8-82.8); PLATELET COUNT 135 K/MM3 (134-434); RBC 3.81 M/mm3 (3.60-5.2); RDW 13.9 % (11.6-15.6)
[2019-11-10 07:03] LABS: ALBUMIN 2.6 g/dl (3.4-5.0); BILIRUBIN,TOTAL 0.4 mg/dL (0.2-1); BLOOD UREA NITROGEN 17.2 mg/dL (7-18); CALCIUM 8.7 mg/dL (8.5-10.1); CREATININE 0.7 mg/dL (0.55-1.3); MAGNESIUM 1.7 mg/dL (1.8-2.4); PHOSPHOROUS 3.3 mg/dL (2.5-4.9); POTASSIUM 3.7 mmol/L (3.5-5.1); TOT PROT 5.7 g/dl (6.4-8.2)
--- NOTE | 2019-11-10 08:41 | PN ---
Progress Note, Physician Chief Complaint: Pt denies chest pain; OOB in chair; breathing with less difficulty. History of Present Illness: 84 YOF with h/o systolic CHF (moderate systolic LV dysfunction on 10/2019 ECHO) , HTN, HLD, ?CVA, GERD, hypothyroidism, diverticolosis, obesity, s/p cholecystectomy, now admitted with SOB (unable to lie flat) x 72 hours; denies chest pain. - Current Medication List Current Medications: Active Medications Docusate Sodium (Colace -) 100 mg PO BID [facility] Last Admin: 11/09/19 21:17 Dose: 100 mg Furosemide (Lasix Injection -) 40 mg IVPUSH DAILY [facility] Last Admin: 11/09/19 09:19 Dose: 40 mg Guaifenesin (Robitussin -) 5 ml PO Q8H PRN PRN Reason: COUGH Last Admin: 11/08/19 17:46 Dose: 5 ml Losartan Potassium (Cozaar -) 25 mg PO DAILY [facility] Last Admin: 11/09/19 09:19 Dose: 25 mg Metoprolol Succinate (Toprol Xl -) 50 mg PO DAILY [facility] Last Admin: 11/09/19 09:18 Dose: 50 mg Quetiapine Fumarate (Seroquel -) 25 mg PO HS PRN PRN Reason: INSOMNIA Last Admin: 11/07/19 22:25 Dose: 25 mg Senna (Senna -) 1 tab PO HS [facility] Last Admin: 11/09/19 21:16 Dose: 1 tab Spironolactone (Aldactone -) 25 mg PO DAILY [facility] Last Admin: 11/09/19 09:19 Dose: 25 mg - Objective Vital Signs: Vital Signs Temperature 98.6 F 11/10/19 06:25 Pulse Rate 80 11/10/19 07:53 Respiratory Rate 22 H 11/10/19 07:53 Blood Pressure 131/64 11/10/19 07:53 O2 Sat by Pulse Oximetry (%) 94 L 11/10/19 07:49 Constitutional: Yes: No Distress Eyes: Yes: WNL HENT: Yes: WNL Neck: Yes: WNL Cardiovascular: Yes: S1, S2 Respiratory: Yes: Regular Gastrointestinal: Yes: Soft ...Rectal Exam: Yes: Deferred Genitourinary: No: Anuria Breast(s): Yes: WNL Musculoskeletal: Yes: Muscle Weakness Extremities: Yes: Cool Edema: No Peripheral Pulses WNL: Yes Integumentary: Yes: WNL Neurological: Yes: Alert, Weakness Psychiatric: Yes: Alert Labs: CBC, BMP 11/10/19 06:00 11/10/19 06:00 INR, PTT INR 1.19 (0.83-1.09) H 10/31/19 16:00 Abnormal Lab Results 11/10/19 11/10/19 06:00 06:00 MPV 11.3 H Monocytes % 21.9 H Monocytes % (Manual) 13 H Eosinophils % 5.1 H Basophils % (Manual) 2.1 H D Carbon Dioxide 36 H Anion Gap 4 L Magnesium 1.7 L Total Protein 5.7 L Albumin 2.6 L - ....Imaging Other: Image Reviewed (temetry: NSR; 1st degree AV block) Problem List - Problems (1) Acute on chronic systolic (congestive) heart failure Assessment/Plan: On metoprolol tartrate, lisinopril, sprironolactone, furosemide. F/u BUN/Cr, electrolytes, Is and Os, daily weight. F/u CXR. 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 Giraldo): last seen in office 04/2019. Nonobstructive CAD on 2016 coronary angiogram. Stress test 2017 abnormal; pt refused repeat angiogram. Last ECHO: severely reduced LVEF, with ascending aorta 4.6 cm (mildly dilated). Code(s): I50.23 - ACUTE ON CHRONIC SYSTOLIC (CONGESTIVE) HEART FAILURE (2) Hypothyroid Assessment/Plan: Slightly elevated TSH; normal free T4. Code(s): E03.9 - HYPOTHYROIDISM, UNSPECIFIED (3) Malaise and fatigue Code(s): R53.81 - OTHER MALAISE; R53.83 - OTHER FATIGUE (4) Upper respiratory infection Code(s): J06.9 - ACUTE UPPER RESPIRATORY INFECTION, UNSPECIFIED Qualifiers: URI type: unspecified URI Qualified Code(s): J06.9 - Acute upper respiratory infection, unspecified (5) Mild ascending aorta dilatation Assessment/Plan: Noted on outside ECHO; not evident on ECHO this admission. 2016 CT: lesion noted near root; could not r/o dissection; f/u CT was recommended. Code(s): I77.810 - THORACIC AORTIC ECTASIA
[2019-11-10 10:05] LABS: ANISOCYTOSIS 0; MACROCYTOSIS 0; PLATELET ESTIMATE DECREASED
[2019-11-10] MEDS: DOCUSATE SODIUM 100 MG CAPSULE (FP) PO SCH ×2 (10:21→21:06)
[2019-11-10] MEDS: SPIRONOLACTONE 25 MG TABLET (FP) PO SCH (10:22)
[2019-11-10] MEDS: FUROSEMIDE 40 MG/4 ML INJECTABLE VIAL IVPUSH SCH (10:24)
[2019-11-10] MEDS: LOSARTAN POTASSIUM 50 MG TABLET (FP) PO SCH (10:24)
--- NOTE | 2019-11-10 13:42 | EKG ---
Test Reason : Blood Pressure : / mmHG Vent. Rate : 076 BPM Atrial Rate : 076 BPM P-R Int : 224 ms QRS Dur : 108 ms QT Int : 398 ms P-R-T Axes : 001 -47 -52 degrees QTc Int : 447 ms SINUS RHYTHM WITH 1ST DEGREE A-V BLOCK LEFT ANTERIOR FASCICULAR BLOCK VOLTAGE CRITERIA FOR LEFT VENTRICULAR HYPERTROPHY ABNORMAL ECG WHEN COMPARED WITH ECG OF 02-NOV-2019 10:49, PREMATURE ATRIAL COMPLEXES ARE NO LONGER PRESENT Confirmed by ELMO JOSEPH MD [id number]) on 11/10/2019 1:41:35 PM Referred By: BRENTON GIBBS Confirmed By:ELMO JOSEPH MD
[2019-11-10] MEDS: guaiFENesin 200 MG/10 ML 10 ML UNIT-DOSE CUPS PO PRN (17:55)
--- NOTE | 2019-11-10 20:06 | PN ---
Progress Note, Physician Chief Complaint: Pt is OOB in chair; denies chest pain or dyspnea. History of Present Illness: 84 YOF with h/o systolic CHF (moderate systolic LV dysfunction on 10/2019 ECHO) , HTN, HLD, ?CVA, GERD, hypothyroidism, diverticolosis, obesity, s/p cholecystectomy, now admitted with SOB (unable to lie flat) x 72 hours; denies chest pain. - Current Medication List Current Medications: Active Medications Docusate Sodium (Colace -) 100 mg PO BID [facility] Last Admin: 11/10/19 10:21 Dose: 100 mg Furosemide (Lasix Injection -) 40 mg IVPUSH DAILY [facility] Last Admin: 11/10/19 10:24 Dose: 40 mg Guaifenesin (Robitussin -) 5 ml PO Q8H PRN PRN Reason: COUGH Last Admin: 11/10/19 17:55 Dose: 5 ml Losartan Potassium (Cozaar -) 25 mg PO DAILY [facility] Last Admin: 11/10/19 10:24 Dose: 25 mg Metoprolol Succinate (Toprol Xl -) 50 mg PO DAILY [facility] Last Admin: 11/10/19 10:22 Dose: 50 mg Quetiapine Fumarate (Seroquel -) 25 mg PO HS PRN PRN Reason: INSOMNIA Last Admin: 11/07/19 22:25 Dose: 25 mg Senna (Senna -) 1 tab PO HS [facility] Last Admin: 11/09/19 21:16 Dose: 1 tab Spironolactone (Aldactone -) 25 mg PO DAILY [facility] Last Admin: 11/10/19 10:22 Dose: 25 mg - Objective Vital Signs: Vital Signs Temperature 98 F 11/10/19 19:31 Pulse Rate 76 11/10/19 19:31 Respiratory Rate 18 11/10/19 19:33 Blood Pressure 121/91 11/10/19 19:31 O2 Sat by Pulse Oximetry (%) 94 L 11/10/19 19:33 Constitutional: Yes: Calm Eyes: Yes: WNL HENT: Yes: WNL Neck: Yes: WNL Cardiovascular: Yes: S1, S2, S4 Respiratory: Yes: Diminished Gastrointestinal: Yes: Soft ...Rectal Exam: Yes: Deferred Genitourinary: No: Anuria Breast(s): Yes: WNL Musculoskeletal: Yes: Muscle Weakness Extremities: Yes: Cool Edema: No Peripheral Pulses WNL: Yes Integumentary: Yes: WNL Neurological: Yes: Alert, Weakness Psychiatric: Yes: Alert Labs: CBC, BMP 11/10/19 06:00 11/10/19 06:00 INR, PTT INR 1.19 (0.83-1.09) H 10/31/19 16:00 Abnormal Lab Results 11/10/19 11/10/19 06:00 06:00 MPV 11.3 H Monocytes % 21.9 H Monocytes % (Manual) 13 H Eosinophils % 5.1 H Basophils % (Manual) 2.1 H D Carbon Dioxide 36 H Anion Gap 4 L Magnesium 1.7 L Total Protein 5.7 L Albumin 2.6 L - ....Imaging Cat Scan: Pending EKG: Image Reviewed (NSR; 1st degree AV block) Problem List - Problems (1) Acute on chronic systolic (congestive) heart failure Assessment/Plan: On metoprolol succinate, lisinopril, spironolactone, furosemide. F/u BUN/Cr, electrolytes, Is and Os, daily weight. F/u CT chest/CTA. 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 Nonobstructive CAD on 2016 coronary angiogram. Stress test 2017 abnormal; pt refused repeat angiogram. Last ECHO: severely reduced LVEF, with ascending aorta 4.6 cm (mildly dilated). Code(s): I50.23 - ACUTE ON CHRONIC SYSTOLIC (CONGESTIVE) HEART FAILURE (2) Hypothyroid Assessment/Plan: Slightly elevated TSH; normal free T4. Code(s): E03.9 - HYPOTHYROIDISM, UNSPECIFIED (3) Malaise and fatigue Assessment/Plan: Physical therapy prior to discharge. Code(s): R53.81 - OTHER MALAISE; R53.83 - OTHER FATIGUE (4) Upper respiratory infection Code(s): J06.9 - ACUTE UPPER RESPIRATORY INFECTION, UNSPECIFIED Qualifiers: URI type: unspecified URI Qualified Code(s): J06.9 - Acute upper respiratory infection, unspecified (5) Mild ascending aorta dilatation Assessment/Plan: Noted on outside ECHO; not evident on ECHO this admission. 2016 CT: lesion noted near root; could not r/o dissection; "Close f/u with CTA chest or MERCEDES" was recommended; CTA has been ordered. Code(s): I77.810 - THORACIC AORTIC ECTASIA
[2019-11-10] MEDS: SENNOSIDES 8.6MG TABLET (FP) PO SCH (21:06)
--- NOTE | 2019-11-10 23:02 | PN ---
Progress Note, Physician History of Present Illness: No new complaints - Current Medication List Current Medications: Active Medications Docusate Sodium (Colace -) 100 mg PO BID [facility] Last Admin: 11/10/19 21:06 Dose: 100 mg Furosemide (Lasix Injection -) 40 mg IVPUSH DAILY [facility] Last Admin: 11/10/19 10:24 Dose: 40 mg Guaifenesin (Robitussin -) 5 ml PO Q8H PRN PRN Reason: COUGH Last Admin: 11/10/19 17:55 Dose: 5 ml Losartan Potassium (Cozaar -) 25 mg PO DAILY [facility] Last Admin: 11/10/19 10:24 Dose: 25 mg Metoprolol Succinate (Toprol Xl -) 50 mg PO DAILY [facility] Last Admin: 11/10/19 10:22 Dose: 50 mg Quetiapine Fumarate (Seroquel -) 25 mg PO HS PRN PRN Reason: INSOMNIA Last Admin: 11/07/19 22:25 Dose: 25 mg Senna (Senna -) 1 tab PO HS [facility] Last Admin: 11/10/19 21:06 Dose: 1 tab Spironolactone (Aldactone -) 25 mg PO DAILY [facility] Last Admin: 11/10/19 10:22 Dose: 25 mg - Objective Vital Signs: Vital Signs Temperature 98 F 11/10/19 19:31 Pulse Rate 76 11/10/19 19:31 Respiratory Rate 18 11/10/19 19:33 Blood Pressure 121/91 11/10/19 19:31 O2 Sat by Pulse Oximetry (%) 94 L 11/10/19 19:33 Cardiovascular: Yes: WNL, Regular Rate and Rhythm Respiratory: Yes: Other (scattered bibasilar rales) Gastrointestinal: Yes: WNL, Normal Bowel Sounds, Soft Labs: CBC, BMP 11/10/19 06:00 11/10/19 06:00 INR, PTT INR 1.19 (0.83-1.09) H 10/31/19 16:00 Problem List - Problems (1) Acute on chronic systolic (congestive) heart failure Assessment/Plan: Cont IV lasix Cont aldactone Monitor electrolytes CXR showed only minimal improvement in congestion Code(s): I50.23 - ACUTE ON CHRONIC SYSTOLIC (CONGESTIVE) HEART FAILURE (2) HTN (hypertension) Assessment/Plan: Cont metoprolol/lisinopril Code(s): I10 - ESSENTIAL (PRIMARY) HYPERTENSION (3) HLD (hyperlipidemia) Code(s): E78.5 - HYPERLIPIDEMIA, UNSPECIFIED (4) Hypothyroid Assessment/Plan: Pt not on levothyroxine TSH is only minimally borderline Repeat TSH in 4-6 weeks Code(s): E03.9 - HYPOTHYROIDISM, UNSPECIFIED (5) CAD (coronary artery disease) Code(s): I25.10 - ATHSCL HEART DISEASE OF [place] CORONARY ARTERY W/O ANG PCTRS
--- NOTE | 2019-11-11 07:46 | PN ---
Progress Note (short form) - Note Progress Note: Coverage for Dr. 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 or chest pain CTA of the chest delayed related to IV contrast allergy, review of prior study low suspicion of aortic dissection, if dissection is still a suspect recommend either proceeding with chest CTA- with pre-medications/steroids and Benadryl or obtaining chest MRA or proceeding with a MERCEDES, to be discussed with the primary team - Current Medication List Current Medications Docusate Sodium (Colace -) 100 mg PO BID [facility] Last Admin: 11/10/19 21:06 Dose: 100 mg Furosemide (Lasix Injection -) 40 mg IVPUSH DAILY [facility] Last Admin: 11/10/19 10:24 Dose: 40 mg Guaifenesin (Robitussin -) 5 ml PO Q8H PRN PRN Reason: COUGH Last Admin: 11/10/19 17:55 Dose: 5 ml Losartan Potassium (Cozaar -) 25 mg PO DAILY [facility] Last Admin: 11/10/19 10:24 Dose: 25 mg Metoprolol Succinate (Toprol Xl -) 50 mg PO DAILY [facility] Last Admin: 11/10/19 10:22 Dose: 50 mg Quetiapine Fumarate (Seroquel -) 25 mg PO HS PRN PRN Reason: INSOMNIA Last Admin: 11/07/19 22:25 Dose: 25 mg Senna (Senna -) 1 tab PO HS [facility] Last Admin: 11/10/19 21:06 Dose: 1 tab Spironolactone (Aldactone -) 25 mg PO DAILY [facility] Last Admin: 11/10/19 10:22 Dose: 25 mg Review of Systems - Review of Systems Constitutional: no symptoms reported Respiratory: denies: Cough or Sputum Production Cardiovascular: as noted above Gastrointestinal: denies Nausea, Vomiting, Diarrhea, Constipation or Abdominal Pain Genitourinary: no symptoms reported Musculoskeletal: no symptoms reported Endocrine: no symptoms reported - Objective Vital Signs: Last Vital Signs Temp Pulse Resp BP Pulse Ox 98 F 70 20 114/80 94 L 11/11/19 06:14 11/11/19 06:14 11/11/19 06:14 11/11/19 06:14 11/10/19 19:33 Intake & Output 11/08/19 11/09/19 11/10/19 11/11/19 23:59 23:59 23:59 23:59 Intake Total 460 600 500 Balance 460 600 500 Weight 183 lb Neck: Supple Negative JVD No Bruit Cardiovascular: S1 S2 Regular Rate and Rhythm No Murmurs Respiratory: Diminished Breath Sounds at the Bases Gastrointestinal: Soft Benign Normal Bowel Sounds Extremities: Trace Edema Labs: CBC, BMP 11/10/19 06:00 11/10/19 06:00 Hepatic Panel Total Bilirubin 0.4 mg/dL (0.2-1) 11/10/19 06:00 AST 22 U/L (15-37) 11/10/19 06:00 ALT 19 U/L (13-61) 11/10/19 06:00 Alkaline Phosphatase 56 U/L (45-117) 11/10/19 06:00 Albumin 2.6 g/dl (3.4-5.0) L 11/10/19 06:00 Assessment/Plan ASSESSMENT: 1. Acute on chronic class I-II NYHA classification LV systolic heart failure, clinically resolving 2. CAD angina pectoris 3. Hypertensive heart disease 4. Hypercholesterolemia 5. History of CVA 6. Hypothyroidism 7. Ascending thoracic aortic aneurysm, dissection suspected but unlikely as noted above PLAN: 1. Continue Toprol XL 2. Initiate Entresto in substitution for Cozaar- outcome data 3. Continue Lasix but initiate PO therapy 4. Continue Aldactone 5. Add ASA 6. Since patient is not compliant with monitoring have D/C and transfer to floor care 7. Obtain chest x-ray 8. Defer chest CTA at this point as outlined above, to be discussed with the primary team Aminah Phipps MD
[2019-11-11] MEDS: DOCUSATE SODIUM 100 MG CAPSULE (FP) PO SCH ×2 (10:21→21:40)
[2019-11-11] MEDS: SPIRONOLACTONE 25 MG TABLET (FP) PO SCH (10:21)
[2019-11-11] MEDS: ASPIRIN COATED 81 MG TABLET.EC PO SCH (10:22)
[2019-11-11] MEDS: FUROSEMIDE 40 MG/4 ML INJECTABLE VIAL IVPUSH SCH ×2 (10:23→11:08)
[2019-11-11] MEDS: SACUBITRIL/VALSARTAN 24 MG-26 MG TABLET PO SCH ×2 (10:23→21:41)
--- NOTE | 2019-11-11 10:42 | PN ---
Physical Exam: SUBJECTIVE: Patient seen and examined, tells me she feels better. tolerating room air. OBJECTIVE: *symphony coverage for Dr. Souza* Patient is an 84 year old female with a significant past medical history of HTN , HLD, CVA, GERD, hypothyroidism, diverticulosis, s/p cholecystectomy presenting to the ED on 10/31/19 with SOB, unable to lie flat, chest pain and abdominal pain/bloating. On exam, patient reports feeling better, no longer using supplemental oxygen, ambulating without dyspnea. Vital Signs Period Temp Pulse Resp BP Sys/Hernandez Pulse Ox Last 24 Hr 98 F-98.2 F 70-80 16-20 114-121/65-91 94-94 GENERAL: The patient is awake, alert, in no acute distress. HEAD: Normal with no signs of trauma. EYES: PERRL, extraocular movements intact, sclera anicteric, conjunctiva clear. No ptosis. ENT: Ears normal, nares patent, oropharynx clear without exudates, moist mucous membranes. NECK: Trachea midline, full range of motion, supple. LUNGS: diminished lungs sounds bilaterally. HEART: Regular rate and rhythm ABDOMEN: Soft, nontender, nondistended, normoactive bowel sounds EXTREMITIES: no edema. NEUROLOGICAL: Normal speech, gait not observed. PSYCH: Normal mood, normal affect. SKIN: Warm, dry, normal turgor, no rashes or lesions noted Active Medications Generic Name Dose Route Start Last Admin Trade Name Freq PRN Reason Stop Dose Admin Aspirin 81 mg 11/11/19 10:00 11/11/19 10:22 Ecotrin - PO 81 mg DAILY [facility] Administration Docusate Sodium 100 mg 11/07/19 22:00 11/11/19 10:21 Colace - PO 100 mg BID [facility] Administration Furosemide 40 mg 11/01/19 12:00 11/10/19 10:24 Lasix Injection - IVPUSH 40 mg DAILY [facility] Administration Guaifenesin 5 ml 11/04/19 23:43 11/10/19 17:55 Robitussin - PO 5 ml Q8H PRN Administration COUGH Metoprolol Succinate 50 mg 11/09/19 10:00 11/11/19 10:22 Toprol Xl - PO 50 mg DAILY [facility] Administration Quetiapine Fumarate 25 mg 11/02/19 23:12 11/07/19 22:25 Seroquel - PO 25 mg HS PRN Administration INSOMNIA Sacubitril/Valsartan 1 tab 11/11/19 10:00 11/11/19 10:23 Entresto 24 Mg-26 Mg Tablet PO 1 tab BID [facility] Administration Senna 1 tab 11/07/19 22:00 11/10/19 21:06 Senna - PO 1 tab HS [facility] Administration Spironolactone 25 mg 11/03/19 19:45 11/11/19 10:21 Aldactone - PO 25 mg DAILY [facility] Administration ASSESSMENT/PLAN: Problem List - Problems (1) Acute on chronic systolic (congestive) heart failure Assessment/Plan: continue Lasix IV 40mg per cardiology daily weights, intake and output monitor electrolytes tolerating room air chest xray ordered and pending Keep potassium between 4.0-4.5 and magnesium >2.0 Code(s): I50.23 - ACUTE ON CHRONIC SYSTOLIC (CONGESTIVE) HEART FAILURE (2) CHF exacerbation Assessment/Plan: on lasix, lopressor, aldactone and Entresto cardiology following Code(s): I50.9 - HEART FAILURE, UNSPECIFIED (3) Elevated brain natriuretic peptide (BNP) level Assessment/Plan: monitor for volume overload Code(s): R79.89 - OTHER SPECIFIED ABNORMAL FINDINGS OF BLOOD CHEMISTRY (4) CAD (coronary artery disease) Assessment/Plan: on plavix Code(s): I25.10 - ATHSCL HEART DISEASE OF [place] CORONARY ARTERY W/O ANG PCTRS (5) Prophylactic measure Assessment/Plan: fen no ivf, on lasix monitor electrolytes daily low salt diet heparin bid bowel regimen Code(s): Z29.9 - ENCOUNTER FOR PROPHYLACTIC MEASURES, UNSPECIFIED (6) Hypothyroid Assessment/Plan: Pt not on levothyroxine TSH is only minimally borderline Repeat TSH in 4-6 weeks Code(s): E03.9 - HYPOTHYROIDISM, UNSPECIFIED Visit type - Emergency Visit Emergency Visit: Yes ED Registration Date: 10/31/19 Care time: The patient presented to the Emergency Department on the above date and was hospitalized for further evaluation of their emergent condition. - New Patient This patient is new to me today: No - Critical Care Critical Care patient: No - Discharge Referral Referred to [facility] Med P.C.: No
[2019-11-11] MEDS: SENNOSIDES 8.6MG TABLET (FP) PO SCH (21:40)
[2019-11-12 06:05] LABS: BASO % 0.9 % (0-2.0); HEMATOCRIT 34.9 % (32.4-45.2); HEMOGLOBIN 11.4 GM/dL (10.7-15.3); LYMPH % 26.6 % (8-40); MCH 29.9 pg (25.7-33.7); MCHC 32.7 g/dl (32.0-36.0); MEAN CELL VOLUME 91.7 fl (80-96); MONO % 17.8 % (3.8-10.2); NEUT % 48.7 % (42.8-82.8); PLATELET COUNT 146 K/MM3 (134-434); RDW 13.7 % (11.6-15.6); WHITE BLOOD COUNT 5.4 K/mm3 (4.0-10.0)
[2019-11-12 06:23] LABS: ALBUMIN 2.6 g/dl (3.4-5.0); BILIRUBIN,TOTAL 0.3 mg/dL (0.2-1); BLOOD UREA NITROGEN 19.3 mg/dL (7-18); CALCIUM 8.6 mg/dL (8.5-10.1); CREATININE 0.8 mg/dL (0.55-1.3); MAGNESIUM 1.6 mg/dL (1.8-2.4); POTASSIUM 3.7 mmol/L (3.5-5.1); TOT PROT 5.6 g/dl (6.4-8.2)
--- NOTE | 2019-11-12 07:34 | PN ---
Progress Note (short form) - Note Progress Note: Coverage for Dr. Pranav Humphreys Chief Complaint: Events noted, notes reviewed, sitting in a chair awaiting transfer to floor bed- no beds available, denies any dyspnea or chest pain History of Present Illness: Seen and examined on telemetry. Events noted, notes reviewed, sitting in a chair awaiting transfer to floor bed- no beds available, denies any dyspnea or chest pain Chest x-ray noted, improved As outlined in yesterday's note CTA of the chest delayed related to IV contrast allergy, review of prior study low suspicion of aortic dissection, if dissection is still a suspect recommend either proceeding with chest CTA- with pre-medications/steroids and Benadryl or obtaining chest MRA or proceeding with a MERCEDES, to be discussed with the cardiology primary cardiology team - Current Medication List Current Medications Aspirin (Ecotrin -) 81 mg PO DAILY [facility] Last Admin: 11/11/19 10:22 Dose: 81 mg Docusate Sodium (Colace -) 100 mg PO BID [facility] Last Admin: 11/11/19 21:40 Dose: 100 mg Furosemide (Lasix Injection -) 40 mg IVPUSH DAILY [facility] Last Admin: 11/11/19 11:08 Dose: 40 mg Guaifenesin (Robitussin -) 5 ml PO Q8H PRN PRN Reason: COUGH Last Admin: 11/10/19 17:55 Dose: 5 ml Metoprolol Succinate (Toprol Xl -) 50 mg PO DAILY [facility] Last Admin: 11/11/19 10:22 Dose: 50 mg Quetiapine Fumarate (Seroquel -) 25 mg PO HS PRN PRN Reason: INSOMNIA Last Admin: 11/07/19 22:25 Dose: 25 mg Sacubitril/Valsartan (Entresto 24 Mg-26 Mg Tablet) 1 tab PO BID [facility] Last Admin: 11/11/19 21:41 Dose: 1 tab Senna (Senna -) 1 tab PO HS [facility] Last Admin: 11/11/19 21:40 Dose: 1 tab Spironolactone (Aldactone -) 25 mg PO DAILY [facility] Last Admin: 11/11/19 10:21 Dose: 25 mg Review of Systems - Review of Systems Constitutional: no symptoms reported Respiratory: denies: Cough or Sputum Production Cardiovascular: as noted above Gastrointestinal: denies Nausea, Vomiting, Diarrhea, Constipation or Abdominal Pain Genitourinary: no symptoms reported Musculoskeletal: no symptoms reported Endocrine: no symptoms reported - Objective Vital Signs: Last Vital Signs Temp Pulse Resp BP Pulse Ox 98.0 F 62 20 109/71 94 L 11/12/19 02:00 11/12/19 06:00 11/12/19 06:00 11/12/19 06:00 11/11/19 20:31 Intake & Output 11/09/19 11/10/19 11/11/19 11/12/19 23:59 23:59 23:59 23:59 Intake Total 600 500 480 200 Balance 600 500 480 200 Weight 183 lb Neck: Supple Negative JVD No Bruit Cardiovascular: S1 S2 Regular Rate and Rhythm No Murmurs Respiratory: Diminished Breath Sounds at the Bases Gastrointestinal: Soft Benign Normal Bowel Sounds Extremities: Trace Edema Labs: CBC, BMP 11/12/19 05:30 11/12/19 05:30 Hepatic Panel Total Bilirubin 0.3 mg/dL (0.2-1) 11/12/19 05:30 AST 24 U/L (15-37) 11/12/19 05:30 ALT 22 U/L (13-61) 11/12/19 05:30 Alkaline Phosphatase 59 U/L (45-117) 11/12/19 05:30 Albumin 2.6 g/dl (3.4-5.0) L 11/12/19 05:30 INR, PTT INR 1.19 (0.83-1.09) H 10/31/19 16:00 Assessment/Plan ASSESSMENT: 1. Acute on chronic class I-II NYHA classification LV systolic heart failure, clinically resolving 2. CAD angina pectoris 3. Hypertensive heart disease 4. Hypercholesterolemia 5. History of CVA 6. Hypothyroidism 7. Ascending thoracic aortic aneurysm, dissection suspected but unlikely as noted above PLAN: 1. Continue Toprol XL, hemodynamics permitting dose titration as needed 2. Continue Entresto, hemodynamics permitting, dose titration as needed with close monitoring of renal function 3. Continue Lasix but initiate PO therapy as recommended 4. Continue Aldactone but increase dosage with close monitoring of renal function 5. Continue ASA 6. Await transfer to floor care 7. As outlined in yesterday's note defer chest CTA at this point as outlined above, to be discussed with the primary cardiology team Aminah Phipps MD
[2019-11-12] MEDS: DOCUSATE SODIUM 100 MG CAPSULE (FP) PO SCH ×2 (09:03→21:23)
[2019-11-12] MEDS: SACUBITRIL/VALSARTAN 24 MG-26 MG TABLET PO SCH ×2 (09:03→21:25)
[2019-11-12] MEDS: FUROSEMIDE 40 MG/4 ML INJECTABLE VIAL IVPUSH SCH (09:03)
[2019-11-12] MEDS: ASPIRIN COATED 81 MG TABLET.EC PO SCH (09:04)
[2019-11-12] MEDS: SPIRONOLACTONE 25 MG TABLET (FP) PO SCH (09:05)
[2019-11-12] MEDS: SENNOSIDES 8.6MG TABLET (FP) PO SCH (21:25)
[2019-11-12] MEDS: QUEtiapine FUMARATE 25 MG TABLET (FP) PO PRN (21:25)
--- NOTE | 2019-11-12 22:03 | PN ---
Progress Note, Physician History of Present Illness: Pt feeling better - Current Medication List Current Medications: Active Medications Aspirin (Ecotrin -) 81 mg PO DAILY [facility] Last Admin: 11/12/19 09:04 Dose: 81 mg Docusate Sodium (Colace -) 100 mg PO BID [facility] Last Admin: 11/12/19 21:23 Dose: 100 mg Furosemide (Lasix Injection -) 40 mg IVPUSH DAILY [facility] Last Admin: 11/12/19 09:03 Dose: 40 mg Guaifenesin (Robitussin -) 5 ml PO Q8H PRN PRN Reason: COUGH Last Admin: 11/10/19 17:55 Dose: 5 ml Metoprolol Succinate (Toprol Xl -) 50 mg PO DAILY [facility] Last Admin: 11/12/19 09:03 Dose: 50 mg Quetiapine Fumarate (Seroquel -) 25 mg PO HS PRN PRN Reason: INSOMNIA Last Admin: 11/12/19 21:25 Dose: 25 mg Sacubitril/Valsartan (Entresto 24 Mg-26 Mg Tablet) 1 tab PO BID [facility] Last Admin: 11/12/19 21:25 Dose: 1 tab Senna (Senna -) 1 tab PO HS [facility] Last Admin: 11/12/19 21:25 Dose: 1 tab Spironolactone (Aldactone -) 25 mg PO DAILY [facility] Last Admin: 11/12/19 09:05 Dose: 25 mg - Objective Vital Signs: Vital Signs Temperature 98.7 F 11/12/19 10:00 Pulse Rate 62 11/12/19 17:48 Respiratory Rate 16 11/12/19 20:30 Blood Pressure 119/60 11/12/19 17:48 O2 Sat by Pulse Oximetry (%) 100 11/12/19 20:30 Neck: Yes: WNL, Supple Cardiovascular: Yes: WNL, Regular Rate and Rhythm Respiratory: Yes: WNL, Regular, CTA Bilaterally Gastrointestinal: Yes: WNL, Normal Bowel Sounds, Soft Labs: CBC, BMP 11/12/19 05:30 11/12/19 05:30 INR, PTT INR 1.19 (0.83-1.09) H 10/31/19 16:00 Problem List - Problems (1) Acute on chronic systolic (congestive) heart failure Assessment/Plan: Cont IV lasix Cont aldactone/entresto Monitor electrolytes Repeat CXR showed diminshed ongestion Will speak to cardio about dc planning for am Code(s): I50.23 - ACUTE ON CHRONIC SYSTOLIC (CONGESTIVE) HEART FAILURE (2) HTN (hypertension) Assessment/Plan: Cont metoprolol/lisinopril Code(s): I10 - ESSENTIAL (PRIMARY) HYPERTENSION (3) HLD (hyperlipidemia) Code(s): E78.5 - HYPERLIPIDEMIA, UNSPECIFIED (4) Hypothyroid Assessment/Plan: Pt not on levothyroxine TSH is only minimally borderline Repeat TSH in 4-6 weeks Code(s): E03.9 - HYPOTHYROIDISM, UNSPECIFIED (5) CAD (coronary artery disease) Code(s): I25.10 - ATHSCL HEART DISEASE OF [place] CORONARY ARTERY W/O ANG PCTRS
[2019-11-13] MEDS: guaiFENesin 200 MG/10 ML 10 ML UNIT-DOSE CUPS PO PRN (06:31)
[2019-11-13 07:02] VITALS: TEMP 97.2
[2019-11-13 08:40] VITALS: BP 106/61; PULSE 72
[2019-11-13] MEDS: SPIRONOLACTONE 25 MG TABLET (FP) PO SCH (09:46)
[2019-11-13] MEDS: DOCUSATE SODIUM 100 MG CAPSULE (FP) PO SCH (09:46)
[2019-11-13] MEDS: ASPIRIN COATED 81 MG TABLET.EC PO SCH (09:47)
[2019-11-13] MEDS: SACUBITRIL/VALSARTAN 24 MG-26 MG TABLET PO SCH (09:47)
[2019-11-13] MEDS ORDERED: FUROSEMIDE 40 MG TABLET (FP) PO SCH (10:00)
--- NOTE | 2019-11-13 11:16 | PN ---
Progress Note, Physician History of Present Illness: 84 YOF with h/o systolic CHF (moderate systolic LV dysfunction on 10/2019 ECHO) , HTN, HLD, ?CVA, GERD, hypothyroidism, diverticolosis, obesity, s/p cholecystectomy, now admitted with SOB (unable to lie flat) x 72 hours; denies chest pain. - Current Medication List Current Medications: Active Medications Aspirin (Ecotrin -) 81 mg PO DAILY [facility] Last Admin: 11/13/19 09:47 Dose: 81 mg Docusate Sodium (Colace -) 100 mg PO BID [facility] Last Admin: 11/13/19 09:46 Dose: 100 mg Furosemide (Lasix -) 40 mg PO DAILY [facility] Last Admin: 11/13/19 10:29 Dose: 40 mg Guaifenesin (Robitussin -) 5 ml PO Q8H PRN PRN Reason: COUGH Last Admin: 11/13/19 06:31 Dose: 5 ml Metoprolol Succinate (Toprol Xl -) 50 mg PO DAILY [facility] Last Admin: 11/13/19 09:47 Dose: 50 mg Quetiapine Fumarate (Seroquel -) 25 mg PO HS PRN PRN Reason: INSOMNIA Last Admin: 11/12/19 21:25 Dose: 25 mg Sacubitril/Valsartan (Entresto 24 Mg-26 Mg Tablet) 1 tab PO BID [facility] Last Admin: 11/13/19 09:47 Dose: 1 tab Senna (Senna -) 1 tab PO HS [facility] Last Admin: 11/12/19 21:25 Dose: 1 tab Spironolactone (Aldactone -) 25 mg PO DAILY [facility] Last Admin: 11/13/19 09:46 Dose: 25 mg - Objective Vital Signs: Vital Signs Temperature 97.2 F L 11/13/19 06:00 Pulse Rate 72 11/13/19 08:39 Respiratory Rate 14 11/13/19 08:39 Blood Pressure 106/61 11/13/19 08:39 O2 Sat by Pulse Oximetry (%) 96 11/13/19 09:00 Labs: CBC, BMP 11/12/19 05:30 11/12/19 05:30 INR, PTT INR 1.19 (0.83-1.09) H 10/31/19 16:00 Problem List - Problems (1) Acute on chronic systolic (congestive) heart failure Code(s): I50.23 - ACUTE ON CHRONIC SYSTOLIC (CONGESTIVE) HEART FAILURE (2) Hypothyroid Code(s): E03.9 - HYPOTHYROIDISM, UNSPECIFIED (3) Malaise and fatigue Code(s): R53.81 - OTHER MALAISE; R53.83 - OTHER FATIGUE (4) Upper respiratory infection Code(s): J06.9 - ACUTE UPPER RESPIRATORY INFECTION, UNSPECIFIED Qualifiers: URI type: unspecified URI Qualified Code(s): J06.9 - Acute upper respiratory infection, unspecified (5) Mild ascending aorta dilatation Code(s): I77.810 - THORACIC AORTIC ECTASIA
[2019-11-13 11:20] LABS: BASO % 1.1 % (0-2.0); EOS % 5.3 % (0-4.5); HEMATOCRIT 35.5 % (32.4-45.2); HEMOGLOBIN 11.5 GM/dL (10.7-15.3); LYMPH % 22.9 % (8-40); MCH 30.1 pg (25.7-33.7); MCHC 32.4 g/dl (32.0-36.0); MEAN CELL VOLUME 92.8 fl (80-96); MEAN PLT VOLUME 11.8 fl (7.5-11.1); MONO % 18.1 % (3.8-10.2); NEUT % 52.6 % (42.8-82.8); PLATELET COUNT 170 K/MM3 (134-434); RBC 3.83 M/mm3 (3.60-5.2); RDW 14.1 % (11.6-15.6); WHITE BLOOD COUNT 5.2 K/mm3 (4.0-10.0)
[2019-11-13 11:38] LABS: ALBUMIN 2.3 g/dl (3.4-5.0); BILIRUBIN,TOTAL 0.3 mg/dL (0.2-1); BLOOD UREA NITROGEN 20.8 mg/dL (7-18); CALCIUM 8.6 mg/dL (8.5-10.1); CREATININE 0.8 mg/dL (0.55-1.3); POTASSIUM 3.7 mmol/L (3.5-5.1); TOT PROT 5.3 g/dl (6.4-8.2)
== END 2019-11-13 14:59 | disposition home health service (06) | DRG 292 ==
LOC: JER 14:34 → JERBED 19:25 → J2W 11-01 13:46
PROVIDERS: ADMIT Internal Medicine; ATTEND Internal Medicine
DX: I11.0 Hypertensive heart disease with heart failure (principal); J98.11 Atelectasis; I50.23 Acute on chronic systolic (congestive) heart failure; I71.2 Thoracic aortic aneurysm, without rupture; I25.10 Atherosclerotic heart disease of native coronary artery without angina pectoris; K21.9 Gastro-esophageal reflux disease without esophagitis; E03.9 Hypothyroidism, unspecified; Z86.73 Personal history of transient ischemic attack (TIA), and cerebral infarction without residual deficits; E66.9 Obesity, unspecified; Z68.27 Body mass index [BMI] 27.0-27.9, adult; E78.5 Hyperlipidemia, unspecified
CPT/HCPCS: 36415; 71045-TC-FY; 71046-TC-FY; 80048; 80053; 81003; 82550; 82553; 82803; 82962; 83735; 83880; 84100; 84436; 84439; 84443; 84484; 85025; 85610; 85730; 87077; 87086; 87186; 87804; 93005; 93010; 93306-TC; 94640; 94761; 97116-GP; 97161-GP; 99285-25; J1644

== ENCOUNTER 2022-05-07 14:05 | Inpatient (IN) | payer OTHER ==
[2022-05-07 16:23] LABS: BASO % 0.6 % (0-2.0); HEMOGLOBIN 9.7 GM/dL (10.7-15.3); MCH 31.6 pg (25.7-33.7); MCHC 34.5 g/dl (32.0-36.0); MEAN CELL VOLUME 91.5 fl (80-96); MEAN PLT VOLUME 10.1 fl (7.5-11.1); MONO % 10.7 % (3.8-10.2); NEUT % 68.7 % (42.8-82.8); PLATELET COUNT 142 10^3/uL (134-434); RBC 3.06 M/mm3 (3.60-5.2); RDW 13.7 % (11.6-15.6)
[2022-05-07 16:30] LABS: INR 1.06 (0.83-1.09); PROTHROMBIN TIME (PATIENT) 12.2 SEC (9.7-13.0)
[2022-05-07 16:33] LABS: ACTIVATED PTT 24.9 SECONDS (25.2-36.5)
[2022-05-07 16:42] LABS: CALCIUM 9.1 mg/dL (8.5-10.1); MAGNESIUM 1.9 mg/dL (1.8-2.4)
[2022-05-07 16:43] LABS: BLOOD UREA NITROGEN 29.3 mg/dL (7-18)
[2022-05-07 16:45] LABS: PHOSPHOROUS 3.7 mg/dL (2.5-4.9)
[2022-05-07 16:47] LABS: BILIRUBIN,TOTAL 0.5 mg/dL (0.2-1); CREATININE 0.9 mg/dL (0.55-1.3)
[2022-05-07 18:08] LABS: PH,URINE 5.5 (5.0-8.0); URINE APPEARANCE CLEAR; URINE BILIRUBIN NEGATIVE (NEGATIVE); URINE COLOR YELLOW; URINE GLUCOSE (UA) NEGATIVE (NEGATIVE); URINE KETONE NEGATIVE (NEGATIVE); URINE LEUK ESTERASE NEGATIVE (NEGATIVE); URINE NITRITE NEGATIVE (NEGATIVE); URINE PROTEIN NEGATIVE (NEGATIVE); URINE UROBILINOGEN 0.2 mg/dL (0.2-1.0)
[2022-05-07] MEDS ORDERED: DEXTROSE 5%-0.45% SALINE 1,000 ML IV SCH (23:00)
[2022-05-07] MEDS ORDERED: QUEtiapine FUMARATE 25 MG TABLET PO SCH (23:45)
[2022-05-08] MEDS ORDERED: SACUBITRIL/VALSARTAN 24 MG-26 MG TABLET PO SCH (10:00)
[2022-05-08] MEDS ORDERED: FUROSEMIDE 40 MG TABLET (FP) PO SCH (10:00)
[2022-05-08] MEDS ORDERED: PANTOPRAZOLE 40 MG TABLET PO SCH (10:00)
[2022-05-08 10:54] LABS: BASO % 0.6 % (0-2.0); EOS % 4.6 % (0-4.5); HEMATOCRIT 24.3 % (32.4-45.2); HEMOGLOBIN 8.3 GM/dL (10.7-15.3); LYMPH % 25.9 % (8-40); MCH 31.2 pg (25.7-33.7); MCHC 34.2 g/dl (32.0-36.0); MEAN CELL VOLUME 91.4 fl (80-96); MEAN PLT VOLUME 10.5 fl (7.5-11.1); MONO % 13.2 % (3.8-10.2); NEUT % 55.7 % (42.8-82.8); PLATELET COUNT 122 10^3/uL (134-434); RBC 2.66 M/mm3 (3.60-5.2); RDW 13.6 % (11.6-15.6); WHITE BLOOD COUNT 4.1 K/mm3 (4.0-10.0)
[2022-05-08 11:17] LABS: CALCIUM 8.2 mg/dL (8.5-10.1)
[2022-05-08 11:19] LABS: ALBUMIN 2.5 g/dl (3.4-5.0); BLOOD UREA NITROGEN 22.7 mg/dL (7-18)
[2022-05-08 11:21] LABS: CREATININE 0.6 mg/dL (0.55-1.3)
[2022-05-08 11:22] LABS: BILIRUBIN,TOTAL 0.4 mg/dL (0.2-1); TOT PROT 5.2 g/dl (6.4-8.2)
[2022-05-08 15:20] LABS: MAGNESIUM 1.8 mg/dL (1.8-2.4)
[2022-05-08 15:24] LABS: PHOSPHOROUS 3.1 mg/dL (2.5-4.9)
[2022-05-08 16:57] LABS: BASO % 0.4 % (0-2.0); EOS % 0.9 % (0-4.5); HEMATOCRIT 26.5 % (32.4-45.2); LYMPH % 16.6 % (8-40); MCH 30.8 pg (25.7-33.7); MEAN CELL VOLUME 90.6 fl (80-96); MEAN PLT VOLUME 10.5 fl (7.5-11.1); MONO % 9.9 % (3.8-10.2); NEUT % 72.2 % (42.8-82.8); PLATELET COUNT 125 10^3/uL (134-434); RBC 2.93 M/mm3 (3.60-5.2); RDW 13.9 % (11.6-15.6); WHITE BLOOD COUNT 5.4 K/mm3 (4.0-10.0)
[2022-05-08 17:04] LABS: INR 1.07 (0.83-1.09); PROTHROMBIN TIME (PATIENT) 12.3 SEC (9.7-13.0)
[2022-05-08 17:07] LABS: ACTIVATED PTT 23.7 SECONDS (25.2-36.5)
[2022-05-08 17:36] LABS: MAGNESIUM 1.7 mg/dL (1.8-2.4)
[2022-05-08 17:40] LABS: PHOSPHOROUS 3.6 mg/dL (2.5-4.9)
[2022-05-08] MEDS ORDERED: DEXTROSE 5%-0.45% SALINE 1,000 ML IV SCH (18:29)
[2022-05-08 21:23] LABS: BASO % 0.4 % (0-2.0); EOS % 1.2 % (0-4.5); HEMATOCRIT 32.6 % (32.4-45.2); HEMOGLOBIN 11.2 GM/dL (10.7-15.3); LYMPH % 19.5 % (8-40); MCH 30.6 pg (25.7-33.7); MCHC 34.3 g/dl (32.0-36.0); MEAN CELL VOLUME 89.2 fl (80-96); MEAN PLT VOLUME 10.3 fl (7.5-11.1); MONO % 12.9 % (3.8-10.2); PLATELET COUNT 127 10^3/uL (134-434); RBC 3.65 M/mm3 (3.60-5.2); RDW 14.3 % (11.6-15.6); WHITE BLOOD COUNT 6.3 K/mm3 (4.0-10.0)
[2022-05-08 21:49] LABS: IRON SERUM 184 ug/dL (50-175)
[2022-05-08 21:51] LABS: TOTAL IRON BINDING CAPACITY 206 ug/dL (250-450)
[2022-05-08] MEDS: CHLORHEXIDINE GLUCONATE 4% CLEANSER FOR DECOLONIZATION TP SCH (22:20)
[2022-05-08] MEDS: MUPIROCIN 2% TOPICAL OINTMENT FOR DECOLONIZATION NS SCH (22:20)
[2022-05-08] MEDS: QUEtiapine FUMARATE 25 MG TABLET PO SCH (22:20)
[2022-05-08] MEDS: SACUBITRIL/VALSARTAN 24 MG-26 MG TABLET PO SCH (22:20)
[2022-05-08] MEDS: PANTOPRAZOLE SODIUM 40 MG VIAL IVPUSH SCH (22:20)
[2022-05-09 00:36] LABS: BASO % 0.4 % (0-2.0); HEMATOCRIT 32.4 % (32.4-45.2); HEMOGLOBIN 11.1 GM/dL (10.7-15.3); LYMPH % 17.1 % (8-40); MCH 30.4 pg (25.7-33.7); MCHC 34.3 g/dl (32.0-36.0); MEAN CELL VOLUME 88.6 fl (80-96); MEAN PLT VOLUME 9.1 fl (7.5-11.1); MONO % 12.4 % (3.8-10.2); NEUT % 69.1 % (42.8-82.8); PLATELET COUNT 163 10^3/uL (134-434); RBC 3.66 M/mm3 (3.60-5.2); RDW 14.2 % (11.6-15.6); WHITE BLOOD COUNT 7.4 K/mm3 (4.0-10.0)
[2022-05-09 07:13] LABS: BASO % 0.5 % (0-2.0); EOS % 3.1 % (0-4.5); HEMATOCRIT 30.2 % (32.4-45.2); HEMOGLOBIN 10.6 GM/dL (10.7-15.3); LYMPH % 24.9 % (8-40); MEAN CELL VOLUME 88.4 fl (80-96); MEAN PLT VOLUME 9.7 fl (7.5-11.1); MONO % 11.8 % (3.8-10.2); NEUT % 59.7 % (42.8-82.8); PLATELET COUNT 155 10^3/uL (134-434); RBC 3.41 M/mm3 (3.60-5.2); RDW 14.3 % (11.6-15.6); WHITE BLOOD COUNT 5.7 K/mm3 (4.0-10.0)
[2022-05-09 07:43] LABS: CALCIUM 8.8 mg/dL (8.5-10.1)
[2022-05-09 07:44] LABS: ALBUMIN 2.7 g/dl (3.4-5.0)
[2022-05-09 07:48] LABS: CREATININE 0.7 mg/dL (0.55-1.3)
[2022-05-09 07:50] LABS: BILIRUBIN,TOTAL 1.8 mg/dL (0.2-1); TOT PROT 5.5 g/dl (6.4-8.2)
[2022-05-09] MEDS: MUPIROCIN 2% TOPICAL OINTMENT FOR DECOLONIZATION NS SCH ×2 (09:17→21:55)
[2022-05-09] MEDS: PANTOPRAZOLE SODIUM 40 MG VIAL IVPUSH SCH ×2 (09:18→21:55)
[2022-05-09] MEDS: FUROSEMIDE 40 MG TABLET (FP) PO SCH (09:18)
[2022-05-09] MEDS: SACUBITRIL/VALSARTAN 24 MG-26 MG TABLET PO SCH ×2 (09:18→21:55)
[2022-05-09] MEDS ORDERED: PANTOPRAZOLE 40 MG TABLET PO SCH (10:00)
[2022-05-09 12:02] VITALS: BMI 24.0
[2022-05-09] MEDS ORDERED: DEXTROSE 5%-1/3 NS - 500 ML with POTASSIUM CHLORIDE 10 MEQ IV SCH (12:15)
[2022-05-09] MEDS: POTASSIUM CHLORIDE 10 MEQ in DEXTROSE 5%-1/3 NS - 500 ML IV SCH ×2 (13:30→19:55)
[2022-05-09 17:36] LABS: BASO % 0.6 % (0-2.0); EOS % 4.1 % (0-4.5); HEMATOCRIT 31.8 % (32.4-45.2); HEMOGLOBIN 10.9 GM/dL (10.7-15.3); MCH 30.8 pg (25.7-33.7); MCHC 34.2 g/dl (32.0-36.0); MEAN CELL VOLUME 90.1 fl (80-96); MEAN PLT VOLUME 10.2 fl (7.5-11.1); MONO % 13.3 % (3.8-10.2); PLATELET COUNT 157 10^3/uL (134-434); RBC 3.53 M/mm3 (3.60-5.2); RDW 14.7 % (11.6-15.6)
[2022-05-09] MEDS: QUEtiapine FUMARATE 25 MG TABLET PO SCH (21:55)
[2022-05-09] MEDS: CHLORHEXIDINE GLUCONATE 4% CLEANSER FOR DECOLONIZATION TP SCH (21:56)
[2022-05-10] MEDS: POTASSIUM CHLORIDE 10 MEQ in DEXTROSE 5%-1/3 NS - 500 ML IV SCH ×3 (03:28→13:00)
[2022-05-10 07:02] LABS: BASO % 0.8 % (0-2.0); EOS % 7.3 % (0-4.5); HEMATOCRIT 30.6 % (32.4-45.2); HEMOGLOBIN 10.7 GM/dL (10.7-15.3); LYMPH % 24.1 % (8-40); MCH 31.2 pg (25.7-33.7); MEAN CELL VOLUME 88.9 fl (80-96); MEAN PLT VOLUME 10.1 fl (7.5-11.1); MONO % 15.9 % (3.8-10.2); NEUT % 51.9 % (42.8-82.8); PLATELET COUNT 152 10^3/uL (134-434); RBC 3.44 M/mm3 (3.60-5.2); RDW 14.2 % (11.6-15.6); WHITE BLOOD COUNT 5.7 K/mm3 (4.0-10.0)
[2022-05-10 07:10] LABS: INR 1.04 (0.83-1.09)
[2022-05-10 07:42] LABS: ALBUMIN 2.7 g/dl (3.4-5.0); BLOOD UREA NITROGEN 18.9 mg/dL (7-18); CALCIUM 8.3 mg/dL (8.5-10.1); MAGNESIUM 1.7 mg/dL (1.8-2.4)
[2022-05-10 07:45] LABS: CREATININE 0.8 mg/dL (0.55-1.3); PHOSPHOROUS 3.7 mg/dL (2.5-4.9)
[2022-05-10 07:46] LABS: BILIRUBIN,TOTAL 1.3 mg/dL (0.2-1); TOT PROT 5.4 g/dl (6.4-8.2)
[2022-05-10] MEDS ORDERED: MAGNESIUM SULF 50% (8.12 MEQ/2 ML-1 GM VIAL) IVPB ONE (08:14)
[2022-05-10] MEDS: FUROSEMIDE 40 MG TABLET (FP) PO SCH (09:11)
[2022-05-10] MEDS: KCL 10 MEQ IVPB 10 MEQ/100 ML INFUS.BAG IVPB SCH ×2 (09:11→10:10)
[2022-05-10] MEDS: PANTOPRAZOLE SODIUM 40 MG VIAL IVPUSH SCH ×2 (09:11→22:12)
[2022-05-10] MEDS: MUPIROCIN 2% TOPICAL OINTMENT FOR DECOLONIZATION NS SCH ×2 (09:11→22:12)
[2022-05-10] MEDS: SACUBITRIL/VALSARTAN 24 MG-26 MG TABLET PO SCH ×2 (09:11→22:12)
[2022-05-10] MEDS ORDERED: POTASSIUM CHLORIDE TABS 20 MEQ TABLET.ER (FP) PO ONE (13:45)
[2022-05-10 17:14] LABS: BASO % 0.3 % (0-2.0); EOS % 3.2 % (0-4.5); HEMATOCRIT 41.3 % (32.4-45.2); HEMOGLOBIN 13.4 GM/dL (10.7-15.3); LYMPH % 21.2 % (8-40); MCH 30.1 pg (25.7-33.7); MCHC 32.5 g/dl (32.0-36.0); MEAN CELL VOLUME 92.8 fl (80-96); MEAN PLT VOLUME 10.1 fl (7.5-11.1); NEUT % 63.3 % (42.8-82.8); PLATELET COUNT 148 10^3/uL (134-434); RBC 4.45 M/mm3 (3.60-5.2); WHITE BLOOD COUNT 8.1 K/mm3 (4.0-10.0)
[2022-05-10] MEDS: QUEtiapine FUMARATE 25 MG TABLET PO SCH (22:12)
[2022-05-10] MEDS: CHLORHEXIDINE GLUCONATE 4% CLEANSER FOR DECOLONIZATION TP SCH (22:13)
[2022-05-11] MEDS: PANTOPRAZOLE SODIUM 40 MG VIAL IVPUSH SCH ×2 (10:28→22:23)
[2022-05-11] MEDS: SACUBITRIL/VALSARTAN 24 MG-26 MG TABLET PO SCH ×2 (10:28→22:23)
[2022-05-11] MEDS: metoPROLOL SUCCINATE 25 MG TAB.SR.24H (FP) PO SCH (10:28)
[2022-05-11] MEDS: FUROSEMIDE 40 MG TABLET (FP) PO SCH (10:28)
[2022-05-11] MEDS: MUPIROCIN 2% TOPICAL OINTMENT FOR DECOLONIZATION NS SCH ×2 (10:46→22:23)
[2022-05-11 21:12] LABS: BASO % 0.5 % (0-2.0); EOS % 2.7 % (0-4.5); HEMATOCRIT 31.3 % (32.4-45.2); HEMOGLOBIN 10.5 GM/dL (10.7-15.3); LYMPH % 18.3 % (8-40); MCH 30.5 pg (25.7-33.7); MCHC 33.6 g/dl (32.0-36.0); MEAN CELL VOLUME 90.8 fl (80-96); MONO % 14.1 % (3.8-10.2); NEUT % 64.4 % (42.8-82.8); PLATELET COUNT 169 10^3/uL (134-434); RBC 3.45 M/mm3 (3.60-5.2); RDW 14.1 % (11.6-15.6); WHITE BLOOD COUNT 6.3 K/mm3 (4.0-10.0)
[2022-05-11 21:35] LABS: CALCIUM 8.3 mg/dL (8.5-10.1)
[2022-05-11 21:36] LABS: ALBUMIN 2.8 g/dl (3.4-5.0); BLOOD UREA NITROGEN 19.2 mg/dL (7-18)
[2022-05-11 21:39] LABS: CREATININE 1.3 mg/dL (0.55-1.3)
[2022-05-11 21:40] LABS: TOT PROT 5.7 g/dl (6.4-8.2)
[2022-05-11 21:41] LABS: BILIRUBIN,TOTAL 0.6 mg/dL (0.2-1)
[2022-05-11] MEDS: QUEtiapine FUMARATE 25 MG TABLET PO SCH (22:23)
[2022-05-11] MEDS: CHLORHEXIDINE GLUCONATE 4% CLEANSER FOR DECOLONIZATION TP SCH (22:23)
[2022-05-12 09:30] LABS: BASO % 0.6 % (0-2.0); EOS % 7.5 % (0-4.5); HEMATOCRIT 29.8 % (32.4-45.2); HEMOGLOBIN 10.3 GM/dL (10.7-15.3); LYMPH % 25.3 % (8-40); MCH 31.2 pg (25.7-33.7); MCHC 34.5 g/dl (32.0-36.0); MEAN CELL VOLUME 90.2 fl (80-96); MEAN PLT VOLUME 10.4 fl (7.5-11.1); MONO % 14.7 % (3.8-10.2); NEUT % 51.9 % (42.8-82.8); PLATELET COUNT 151 10^3/uL (134-434); RBC 3.31 M/mm3 (3.60-5.2); RDW 13.9 % (11.6-15.6); WHITE BLOOD COUNT 5.3 K/mm3 (4.0-10.0)
[2022-05-12 09:50] LABS: CALCIUM 8.2 mg/dL (8.5-10.1)
[2022-05-12 09:51] LABS: ALBUMIN 2.6 g/dl (3.4-5.0); BLOOD UREA NITROGEN 18.6 mg/dL (7-18)
[2022-05-12 09:54] LABS: CREATININE 1.1 mg/dL (0.55-1.3)
[2022-05-12 09:55] LABS: BILIRUBIN,TOTAL 0.9 mg/dL (0.2-1)
[2022-05-12 09:56] LABS: TOT PROT 5.4 g/dl (6.4-8.2)
[2022-05-12] MEDS ORDERED: PANTOPRAZOLE SODIUM 40 MG VIAL IVPUSH SCH (10:00)
[2022-05-12] MEDS ORDERED: SACUBITRIL/VALSARTAN 24 MG-26 MG TABLET PO SCH (10:00)
[2022-05-12] MEDS ORDERED: FUROSEMIDE 40 MG TABLET (FP) PO SCH (10:00)
[2022-05-12] MEDS: metoPROLOL SUCCINATE 25 MG TAB.SR.24H (FP) PO SCH (12:26)
[2022-05-12] MEDS ORDERED: ACETAMINOPHEN 325 MG TABLET (FP) PO ONE (15:00)
[2022-05-12 19:04] VITALS: BP 104/60; PULSE 74; TEMP 99.1
[2022-05-12] MEDS ORDERED: QUEtiapine FUMARATE 25 MG TABLET PO SCH (22:00)
== END 2022-05-12 19:46 | disposition home health service (06) | DRG 378 ==
LOC: JER 14:05 → JERBED 19:27 → J5S 21:45 → JICU 05-08 16:42 → J5S 05-12 01:57
PROVIDERS: ADMIT Internal Medicine; ATTEND Internal Medicine
PROC: 30233N1 Transfusion of Nonautologous Red Blood Cells into Peripheral Vein, Percutaneous Approach (ICD-10-PCS; principal; 2022-05-08)
PROC: 30233R1 Transfusion of Nonautologous Platelets into Peripheral Vein, Percutaneous Approach (ICD-10-PCS; 2022-05-08)
DX: K57.91 Diverticulosis of intestine, part unspecified, without perforation or abscess with bleeding (principal); I50.22 Chronic systolic (congestive) heart failure; E87.0 Hyperosmolality and hypernatremia; E03.9 Hypothyroidism, unspecified; F03.90 Unspecified dementia, unspecified severity, without behavioral disturbance, psychotic disturbance, mood disturbance, and anxiety; I11.0 Hypertensive heart disease with heart failure; I25.10 Atherosclerotic heart disease of native coronary artery without angina pectoris; E78.5 Hyperlipidemia, unspecified; K21.9 Gastro-esophageal reflux disease without esophagitis; E87.6 Hypokalemia; E87.5 Hyperkalemia; D64.9 Anemia, unspecified
CPT/HCPCS: 0241U-QW; 36415; 36430; 71045-TC-FY; 74176-TC; 80053; 81003; 82272; 83540; 83550; 83605; 83735; 84100; 84443; 84484; 85025; 85610; 85730; 86850; 86900; 86901; 86922; 87040; 87086; 93005; 93010; 97116-GP; 97161-GP; 99285-25; P9034; P9058